=== PATIENT | female | born 1940 | race Caucasian/White ===

== ENCOUNTER 2023-09-11 07:05 | Day surgery (SDC) | payer MEDICARE, OTHER, SELFPAY ==
[2023-09-04 12:31] VITALS: BMI 22.4
[2023-09-11 08:48] VITALS: BMI 20.9
== END 2023-09-11 09:15 | disposition home or self-care (01) ==
LOC: CATH 07:05
PROVIDERS: ATTENDING PHYSICIAN Internal Medicine; FAMILY PHYSICIAN Family Medicine; OTHER PHYSICIAN Internal Medicine Cardiovascular Disease
DX: I08.3 Combined rheumatic disorders of mitral, aortic and tricuspid valves (principal); I10 Essential (primary) hypertension; I25.10 Atherosclerotic heart disease of native coronary artery without angina pectoris; R06.09 Other forms of dyspnea; E03.9 Hypothyroidism, unspecified
CPT/HCPCS: 93325; 93320; 93312

== ENCOUNTER 2024-11-23 11:34 | Emergency (ER) | payer MEDICARE, OTHER, SELFPAY ==
[2024-11-23] VITALS (8 sets, daily range): BP systolic 103–148; BP diastolic 68–118; BMI 21.3
[2024-11-23] MEDS: CARDIZEM 125 IV (12:25)
[2024-11-23] MEDS: CARDIZEM 10 MG IV (12:26)
[2024-11-23 12:38] LABS: % Basophils 0.4 % (0-2); % Eosinophils 0.6 % (0-6); % Immature Granulocytes 0.1 % (0-0.5); % Monocytes 11.2 % (1.7-9.3); % Neutrophils 69.7 % (42.2-75.2); Absolute Lymphocytes 1.2 10^3/uL (1.2-3.4); Absolute Monocytes 0.8 10^3/uL (0.1-0.6); Absolute Neutrophils 4.6 10^3/uL (1.4-6.5); Hematocrit 41.1 % (37.0-47.0); Hemoglobin 13.8 g/dL (12.0-16.0); Mean Corp Hgb Conc. 33.6 g/dL (33.0-37.0); Mean Corpuscular Hgb 28.6 pg (27.0-31.0); Mean Corpuscular Volume 85.3 fL (81.0-99.0); Mean Platelet Volume 9.8 fL (7.4-10.4); Nucleated Red Blood Cells % 0 %; Platelet Count 218 10^3/uL (130-400); Red Blood Cell Count 4.82 10^6/uL (4.20-5.40); Red Cell Dist. Width 14.1 % (11.5-14.5); White Blood Cell Count 6.7 10^3/uL (4.8-10.8)
[2024-11-23 12:46] LABS: INR 1.05
[2024-11-23 12:47] LABS: APTT 29.6 Sec (23.4-35.0)
[2024-11-23 12:56] LABS: ALT (SGPT) 12 U/L (0-35); AST (SGOT) 23 U/L (14-36); Albumin 4.1 g/dl (3.5-5.0); Alkaline Phosphatase 129 U/L (38-126); Blood Urea Nitrogen 17 mg/dl (7-17); Calcium 9.6 mg/dl (8.4-10.2); Carbon Dioxide 26 mmol/L (22-30); Chloride 100 mmol/L (98-107); Estimated Creatinine Clearance 44 ml/min; Glucose 83 mg/dl (70-99); Magnesium 1.9 mg/dl (1.6-2.3); Potassium 4.4 mmol/L (3.5-5.1); Sodium 134 mmol/L (135-145); Total Bilirubin 1.2 mg/dl (0.2-1.3); eGFR > 60.00
--- NOTE | 2024-11-23 13:08 | ED.GENMED ---
History of Present Illness
<Pradip Mcgowan, DO - Last Filed: 11/24/24 19:14>
General
Chief Complaint: Dizziness
Source: patient, records, spouse and physician
Exam Limitations: none
Time Seen by Provider: 11/23/24 11:53
Nursing documentation reviewed up to this point in time: agreed with
History of Present Illness
History of Present Illness:
84-year-old female referred to the ER from pulmonary where she presented for check up was found to be tachycardic with near syncope, has history of mitral valve disease, no history of A-fib, has history of lymphoma, she has no chest pain or
shortness of breath has been feeling fairly dizzy today, is not entirely clear when the A-fib started, no fever chills no nausea or vomiting,
Past History
<Pradip Mcgowan, DO - Last Filed: 11/24/24 19:14>
Past History
ED Past Medical History: Cancer, HTN and Valvular disease
Social History
Tobacco: Non-smoker
Alcohol: None
Drug: None
Personal:
Living: with family
Employment: Retired
Review of Systems
<Pradip Mcgowan, DO - Last Filed: 11/24/24 19:14>
Review of Systems
All Other Systems: Not applicable
Constitutional: Reports fatigue; Denies fever
Respiratory: Reports no symptoms
Cardiac: Reports no symptoms
Phy Exam
<Pradip Mcgowan, DO - Last Filed: 11/24/24 19:14>
Physical Exam
Physical Exam:
Physical Exam
General: no apparent distress, not acutely ill
Neck:No jaundice
Heart: Tachycardic
Lungs: no acute respiratory distress. clear bilaterally
Abdomen:. not tender.
Neuro: alert and oriented. no focal neurological deficits
Skin: no rash
Psychiatric: well kept. interactive and cooperative
Extremities: no edema. no calf tendernes
Course
<Pradip Mcgowan, DO - Last Filed: 11/24/24 19:14>
Orders/Labs/Results
Orders:
Orders
11/23/24 11:40
Electrocardiogram (*1) Urgent
Reason for Study: Vertigo / Dizzy
EKG- Treatment ONCE
11/23/24 12:13
Cardiac Monitoring- Treatment ONCE
IV Insert/Care/Rem.- Treatment PRN
Diltiazem HCl [Cardizem] 10 mg IV NOW STA
CR Chest Portable - 1 View Urgent
Comment:
Reason For Exam: hr fast
Reason Study Needs to be Portable: Patient Unstable
11/23/24 12:15
Diltiazem 125 mg/125 ml Nss [Cardizem] 125 mg in 125 ml IV PER PROTOCOL
Initial dose in mg/hr, then titrate:: 5
Titrate to keep:: Heart rate 80-100 bpm
Titrate by mg/hr:: 5 mg/hr
Frequency of titrations (minutes):: 15
Maximum dose in mg/hr:: 15
11/23/24 12:23
Complete Blood Count/With Diff Urgent
Comprehensive Metabolic Panel Urgent
Magnesium Urgent
PTT Urgent
Prothrombin Time Urgent
TSH Urgent
11/23/24 13:16
EKG- Treatment ONCE
Abnormal Lab Results
11/23/24
12:23
Absolute Monos (auto) 0.8 H 10^3/uL
(0.1-0.6)
Lymphocytes % 18.0 L %
(20.5-51.1)
Monocytes % 11.2 H %
(1.7-9.3)
Sodium 134 L mmol/L
(135-145)
Alkaline Phosphatase 129 H U/L
(38126)
11/23/24 12:23
11/23/24 12:23
Vital Signs
Initial and Last Documented VS:
Initial Vital Signs
Temp Pulse Resp BP Pulse Ox
97.3 F 86 17 148/88 98
11/23/24 11:36 11/23/24 11:36 11/23/24 11:36 11/23/24 11:36 11/23/24 11:36
Last Documented Vital Signs
Temp Pulse Resp BP Pulse Ox
97.3 F 73 25 130/82 96
11/23/24 11:36 11/23/24 15:00 11/23/24 15:00 11/23/24 15:00 11/23/24 15:00
<Abrahan Cobb, DO - Last Filed: 11/23/24 15:03>
Orders/Labs/Results
Orders:
Orders
11/23/24 11:40
Electrocardiogram (*1) Urgent
Reason for Study: Vertigo / Dizzy
EKG- Treatment ONCE
11/23/24 12:13
Cardiac Monitoring- Treatment ONCE
IV Insert/Care/Rem.- Treatment PRN
Diltiazem HCl [Cardizem] 10 mg IV NOW STA
CR Chest Portable - 1 View Urgent
Comment:
Reason For Exam: hr fast
Reason Study Needs to be Portable: Patient Unstable
11/23/24 12:15
Diltiazem 125 mg/125 ml Nss [Cardizem] 125 mg in 125 ml IV PER PROTOCOL
Initial dose in mg/hr, then titrate:: 5
Titrate to keep:: Heart rate 80-100 bpm
Titrate by mg/hr:: 5 mg/hr
Frequency of titrations (minutes):: 15
Maximum dose in mg/hr:: 15
11/23/24 12:23
Complete Blood Count/With Diff Urgent
Comprehensive Metabolic Panel Urgent
Magnesium Urgent
PTT Urgent
Prothrombin Time Urgent
TSH Urgent
11/23/24 13:16
EKG- Treatment ONCE
Abnormal Lab Results
11/23/24
12:23
Absolute Monos (auto) 0.8 H 10^3/uL
(0.1-0.6)
Lymphocytes % 18.0 L %
(20.5-51.1)
Monocytes % 11.2 H %
(1.7-9.3)
Sodium 134 L mmol/L
(135-145)
Alkaline Phosphatase 129 H U/L
(38-126)
11/23/24 12:23
11/23/24 12:23
Vital Signs
Initial and Last Documented VS:
Initial Vital Signs
Temp Pulse Resp BP Pulse Ox
97.3 F 86 17 148/88 98
11/23/24 11:36 11/23/24 11:36 11/23/24 11:36 11/23/24 11:36 11/23/24 11:36
Last Documented Vital Signs
Temp Pulse Resp BP Pulse Ox
97.3 F 73 25 130/82 96
11/23/24 11:36 11/23/24 15:00 11/23/24 15:00 11/23/24 15:00 11/23/24 15:00
<Pradip Mcgowan DO - Last Filed: 11/24/24 19:14>
MDM/Problems Addressed
Differential Diagnosis Includes:
Atrial tach atrial fibs tacky bradycardia electrolyte abnormality
MDM/Problems Addressed:
Tachycardia near syncope
<Pradip Mcgowan DO - Last Filed: 11/24/24 19:14>
*Critical Care Note
Total Time (30-74mins, 75-104mins- exclusive of procedures): Not Applicable
<Pradip Mcgowan DO - Last Filed: 11/24/24 19:14>
Update Note
Update Note:
Update on the Cardizem drip looks like she converted to sinus rhythm strips reviewed looks like they were A-fib versus atrial tach will hold on admission now await for cardiology evaluation
<Abrahan Cobb, DO - Last Filed: 11/23/24 15:03>
Update Note
Update Note:
Update on the Cardizem drip looks like she converted to sinus rhythm strips reviewed looks like they were A-fib versus atrial tach will hold on admission now await for cardiology evaluation
3 PM care of patient was transitioned earlier pending cardiology evaluation. After my discussion with cardiology, they do not appreciate A-fib. They suggested prescribing diltiazem and patient will picking machine operator a Holter monitor after discharge on her
way home
ED Attending Note
<Pradip Mcgowan, DO - Last Filed: 11/24/24 19:14>
-
Portions of this chart may have been created with voice recognition software.� Occasional wrong word or��sound alike� substitutions may have occurred due to the inherent limitations of voice recognition software.
Discharge Plan
Departure
Patient Disposition: Home (Routine Discharge)
Date of Disposition: 11/23/24
Time of Disposition: 15:00
Patient with high blood pressure during this ER visit?: Yes
Discharge Problem:
Heart palpitations
Instructions: Palpitations ED, BLOOD PRESSURE
Prescriptions:
New
diltiazem HCl 120 mg capsule,extended release 24hr
120 mg PO DAILY Qty: 30 0RF
No Action
levothyroxine 50 MCG tablet
50 mcg PO DAILY
carvedilol 12.5 MG tablet
25 mg PO BID
hydrochlorothiazide 12.5 mg Tablet
12.5 mg PO DAILY PRN (Reason: Retention)
Referrals:
Bello Valentin MD [Family Provider] -
Activity Restrictions/Additional Instructions:
Please picking machine operator the Holter monitor at the cardiology office on your way home. Please return for worsening symptoms. Follow-up with head greenskeeper as suggested.
Interventions
Interventions:
*Risk Screen - Suicide Last Done: 11/23/24 12:31
*General Assessment Last Done: 11/23/24 12:29
*Neglect/Abuse Screening Last Done: 11/23/24 12:31
*ED- Fall Risk Assessment Last Done: 11/23/24 12:29
*ED COVID-19 Vaccine History Last Done: 11/23/24 12:29
*Nursing Disposition Last Done: 11/23/24 15:11
ED- Neurological Assessment Last Done: 11/23/24 13:22
ED- Cardiac Assessment Last Done: 11/23/24 13:23
Discharge Date and Time
Discharge Date/Time: 11/23/24 15:12
Print Language: [place]
[2024-11-23 13:39] LABS: TSH 3.53 uIU/ml (0.47-4.68)
--- NOTE | 2024-11-23 14:15 | CON.CAR ---
Addendum entered and electronically signed by Remi Hancock MD 11/23/24 15:31:
I saw and examined the patient.
The SEO INTERN's note was reviewed and I agree with the note.
Comment: 84yo F well known to me in the outpatient setting with a history of mitral regurgitation, labile hypertension, CVA, Sjogren's syndrome, sarcoidosis and polymyositis who presented with dizziness. She woke up this morning and felt very
lightheaded as though she might pass out. She knew she had an appoint with Dr. Davison so went there for evaluation. He recommended evaluation in the ED when needed elevated heart rate was noted. Upon arrival to the ED, she was noted to have
tachyarrhythmia and started on diltiazem drip. She is feeling better since then. Heart rate is better controlled. She does report at home she is taking less of her Coreg because it seems to drop her blood pressure precipitously causing dizziness.
Otherwise, she has fatigue but no increased dyspnea on exertion. She has a regular rate and rhythm with a normal S1-S2 2 out of 6 systolic murmur heard at the apex, lungs are clear to auscultation bilaterally extremities are warm well-perfused
without clubbing cyanosis and trace edema in the lower extremities. Extensive review of her telemetry shows sinus rhythm with episodes of possible MAT versus A. tach. No efforts at sowed's of A-fib seen. Currently in sinus rhythm. EKG tracing
today shows sinus rhythm with marked sinus arrhythmia and LVH. Chest x-ray without acute cardiopulmonary changes. Currently she is feeling improved without any symptoms. She would like to go home. This seems reasonable as her dizziness seems to
be linked to a tachyarrhythmia that is now under control with some IV diltiazem. Will transition this to a long-acting diltiazem dose of 120 mg daily. She will continue with her remaining medications. I will arrange for her to stop at our office
on the way home to pepper picker a 7-day rhythm*monitor. I would hate to miss atrial fibrillation if present. Additionally, we will update an echocardiogram as an outpatient and arrange for short term follow-up. She is agreeable to this plan.
Original Note:
Consultation
Consultation Request
Date/Time Consultation Requested: 11/23/2024 13:45
Date/Time Consultation Performed: 11/23/2024 13:55
Requesting Provider: Dr. Mcgowan
Performing Provider: MADDIE Morales for Dr. Hancock
Reason for Consultation: Tachycardia
Medical History
-
Chief Complaint: Dizziness
History of Present Illness:
Aleshia King is an 84-year-old female (known to Dr. 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
Sjogren's syndrome diagnosed 40 years ago, polymyositis , sarcoidosis ([place]), & arachnoiditis who presents to the emergency room with dizziness. About 2 hours after she woke up she felt very dizzy. She endorses associated burning on her
posterior neck. She had a scheduled appointment with pulmonary. She was found to have an elevated heart rate and was referred to the emergency department. It appears to be MAT on telemetry. She is currently in sinus rhythm on diltiazem at 5
mg/hr. Her dizziness has resolved.
Past Medical History
Past Medical History: CAD, CHF, CVA, HTN, Valvular Disease (Mitral regurgitation) and Other (Sarcoid)
Social History
Tobacco: Non-Smoker
Alcohol: None
Drug: None
Personal:
Living: With Family
Employment: Retired
Family History
Family History: Reviewed & Not Pertinent
Allergies / Home Medications
Allergy/AdvReac Type Severity Reaction Status Date / Time
adhesive tape Allergy skin Verified 11/23/24 11:38
irriation
Penicillins Allergy Rash, Verified 11/23/24 11:38
SWELING
spironolactone Allergy rash of Verified 11/23/24 11:38
upper
extremties,
feet
Sulfa (Sulfonamide Allergy Rash, Verified 11/23/24 11:38
Antibiotics) SWELLING
tree and shrub pollen Allergy Cold Verified 11/23/24 11:38
Symptoms
�Medication �Instructions �Recorded �Confirmed �Type
levothyroxine 50 mcg tablet 50 mcg PO DAILY 10/05/14 09/11/23 History
carvedilol 12.5 mg tablet 25 mg PO BID 12/12/21 09/11/23 History
hydrochlorothiazide 12.5 mg tablet 12.5 mg PO DAILY PRN Retention 09/11/23 09/11/23 History
Review of Systems
-
History Source: Patient
Constitutional: No Symptoms
EENT: No Symptoms
Respiratory: No Symptoms
Cardiac: No Symptoms
Abdomen/GI: No Symptoms
: No Symptoms
Musculoskeletal: No Symptoms
Skin: No Symptoms
Neurological: No Symptoms
Endocrine: No Symptoms
Hematologic/Lymphatic: No Symptoms
Physical Exam
Vital Signs
Temp Pulse Resp BP Pulse Ox
97.3 F 76 17 147/118 95
11/23/24 11:36 11/23/24 14:00 11/23/24 12:01 11/23/24 12:01 11/23/24 12:01
Lab Results
11/23/24 12:23
11/23/24 12:23
Physical Exam
General: Well Developed, Well Nourished, No Apparent Distress and Comfortable
HEENT: Normocephalic, Anicteric and Moist Mucous Membranes
Respiratory: Clear and Non Labored Respirations
Cardiac: S1/S2 and Regular Rhythm
Breast: Deferred by me
GI: Soft, Non Tender, Non Distended and Normal Bowel Sounds
Rectal: Deferred by Provider
Genito-urinary: No Costovertebral Tender
Musculoskeletal: No Clubbing, No Cyanosis and No Edema
Skin: Warm and Dry
Neuro: AO x 3
Hematologic/Lymphatic: No Lymphadenopathy
Psych: Calm
Impression / Plan
-
MAT
- In sinus rhythm on diltiazem 5mg/hour, stop and transition to diltiazem 120 mg daily
- She only took half of her carvedilol this morning
- Outpatient monitoring to be arranged
Mitral regurgitation
- MVP at P2 with moderate MR on BRI 08/2023
- Outpatient echocardiogram to be arranged
Cardiomyopathy, nonischemic (EF 45 to 50%), recovered
- Cardiac MRI without acute findings
- SGLT2: Did not tolerate
- MRA: Rash with spironolactone
Labile hypertension
- Hydralazine caused myalgia, clonidine caused fatigue, ACEI caused hair loss, amlodipine caused lower extremity swelling, valsartan caused urinary retention, doxazosin caused urinary incontinence
- Continue carvedilol and HCTZ
CVA, 2006, in the setting of accelerated hypertension
Sarcoid
Large cell lymphoma, chemotherapy without XRT
Sjogren syndrome
Polymyositis
Data Reviewed
-
EKG: Report Reviewed by me
Medical Tests (Nuc Med, Echo etc): Report Reviewed by me
Labs: Labs Reviewed by me
Old Records: Reviewed
== END 2024-11-23 15:12 | disposition home or self-care (01) ==
LOC: EMR 11:34
PROVIDERS: EMERGENCY PHYSICIAN Emergency Medicine; FAMILY PHYSICIAN Family Medicine; OTHER PHYSICIAN Internal Medicine Cardiovascular Disease
DX: R00.2 Palpitations (principal); I11.0 Hypertensive heart disease with heart failure; I50.9 Heart failure, unspecified
CPT/HCPCS: 99285; 96374; 71045; 80053; 83735; 84443; 85025; 85610; 85730; 93005

== ENCOUNTER → 2024-12-02 11:19 | Outpatient (REF) | payer MEDICARE, OTHER, SELFPAY | LOC: HWRCS 11:19 | PROVIDERS: ATTENDING PHYSICIAN Internal Medicine Cardiovascular Disease; FAMILY PHYSICIAN Family Medicine | DX: I42.9 Cardiomyopathy, unspecified (principal); I34.0 Nonrheumatic mitral (valve) insufficiency; I10 Essential (primary) hypertension | CPT/HCPCS: 93306 ==

== ENCOUNTER 2024-12-06 14:50 | Emergency (ER) | payer MEDICARE, OTHER, SELFPAY ==
[2024-12-06 15:07] VITALS: BP 176/82
[2024-12-06 15:26] LABS: % Basophils 0.4 % (0-2); % Eosinophils 0.6 % (0-6); % Immature Granulocytes 0.2 % (0-0.5); % Lymphocytes 20.2 % (20.5-51.1); % Monocytes 7.6 % (1.7-9.3); Absolute Lymphocytes 1.1 10^3/uL (1.2-3.4); Absolute Monocytes 0.4 10^3/uL (0.1-0.6); Absolute Neutrophils 3.7 10^3/uL (1.4-6.5); Hematocrit 43.8 % (37.0-47.0); Hemoglobin 14.6 g/dL (12.0-16.0); Mean Corp Hgb Conc. 33.3 g/dL (33.0-37.0); Mean Corpuscular Volume 87.1 fL (81.0-99.0); Mean Platelet Volume 9.5 fL (7.4-10.4); Nucleated Red Blood Cells % 0 %; Platelet Count 260 10^3/uL (130-400); Red Blood Cell Count 5.03 10^6/uL (4.20-5.40); Red Cell Dist. Width 14.6 % (11.5-14.5); White Blood Cell Count 5.2 10^3/uL (4.8-10.8)
[2024-12-06 15:31] LABS: Erythrocyte Sed Rate 17 mm/hour (0-20)
[2024-12-06 15:39] LABS: ALT (SGPT) 18 U/L (0-35); AST (SGOT) 31 U/L (14-36); Albumin 4.5 g/dl (3.5-5.0); Alkaline Phosphatase 109 U/L (38-126); Blood Urea Nitrogen 16 mg/dl (7-17); Calcium 10.2 mg/dl (8.4-10.2); Carbon Dioxide 31 mmol/L (22-30); Chloride 95 mmol/L (98-107); Glucose 126 mg/dl (70-99); Potassium 4.4 mmol/L (3.5-5.1); Sodium 136 mmol/L (135-145); Total Bilirubin 0.8 mg/dl (0.2-1.3); Total Protein 7.9 g/dl (6.3-8.2); eGFR > 60.00
== END 2024-12-06 20:00 | disposition left against medical advice (07) ==
LOC: EMR 14:50
PROVIDERS: Emergency Medicine; EMERGENCY PHYSICIAN Emergency Medicine
DX: M54.50 Low back pain, unspecified (principal); Z53.21 Procedure and treatment not carried out due to patient leaving prior to being seen by health care provider
CPT/HCPCS: 80053; 85025; 85652; 86140

== ENCOUNTER → 2024-12-08 18:40 | Outpatient (REF) | payer MEDICARE, OTHER, SELFPAY | LOC: MRI 3T 18:40 | PROVIDERS: ATTENDING PHYSICIAN Internal Medicine Hematology & Oncology; FAMILY PHYSICIAN Family Medicine | DX: M51.17 Intervertebral disc disorders with radiculopathy, lumbosacral region (principal); C83.38 Diffuse large B-cell lymphoma, lymph nodes of multiple sites; M81.0 Age-related osteoporosis without current pathological fracture | CPT/HCPCS: 72158; A9575 ==

== ENCOUNTER 2024-12-17 12:13 | Inpatient (IN) | payer MEDICARE, OTHER, SELFPAY ==
[2024-12-17] VITALS (22 sets, daily range): BP systolic 110–166; BP diastolic 69–142; BMI 20.8; BMI 19.3
--- NOTE | 2024-12-17 07:08 | ED.GENMED ---
History of Present Illness
General
Chief Complaint: Breathing Problem
Time Seen by Provider: 12/17/24 06:48
History of Present Illness
History of Present Illness:
84-year-old female presents to the emergency department for evaluation of shortness of breath beginning last night. She was recently wearing an outpatient groundwater monitoring technician that diagnosed her with atrial fibrillation, was contacted by her
booster station operator yesterday and was started on new medications. She was started on 200 mg of amiodarone, switched from carvedilol to 50 mg of metoprolol, and started on 2.5 mg of Eliquis. States that she felt significantly worse after beginning of
these medications. Currently reports orthopnea and dyspnea on exertion. No leg swelling or chest pain. Feels generally fatigued. No fever
Past History
Past History
ED Past Medical History: Cancer, HTN and Valvular disease
Social History
Tobacco: Non-smoker
Alcohol: None
Drug: None
Personal:
Living: with family
Employment: Retired
Review of Systems
Review of Systems
Allergies reviewed?: Yes
All Other Systems: ROS reviewed and negative except as documented in HPI and ROS
Phy Exam
Physical Exam
Physical Exam:
GEN: Well appearing, NAD, WDWN
HEENT: Oral mucosa moist, no scleral icterus
Cardiac: Irreg irregular rhythm, controlled rate
Lung: No respiratory distress, no tachypnea, lungs clear to auscultation bilaterally
MSK: No gross deformity or injuries, no lower extremity edema
Skin: Good color, no pallor or jaundice, no rashes
Neuro: AO x3, moves all extremities freely
Psych: Calm, cooperative
Scores
Heart Failure Risk
Heart Failure Risk Score: Yes
History of Stroke or TIA: No
History of intubation for respiratory distress: No
Heart rate on ED arrival >/= 110: Yes
SaO2 <90% on arrival on room air: No
HR >/=110 during 3min walk test (or too ill to perform test): Yes
ECG has acute ischemic changes: No
Urea >/=12mmol/L (BUN 33.6mg/dL): No
Serum CO2>/=35mmol/L: No
Troponin I or T elevated to [place] Level (0.4mg/dL): No
NT-proBNP >/=5,000ng/L (5,000pg/ml): Yes
HF Risk Score: 3
Admission Status: HIGH RISK 15.9% Consider SNF treatment or admission to hospital
Course
Orders/Labs/Results
Orders:
Orders
12/17/24 06:23
EKG [Electrocardiogram (*1)] Urgent
Reason for Study: Shortness of Breath
12/17/24 06:24
EKG- Treatment ONCE
12/17/24 06:58
CR Chest - 2 Views Urgent
Comment:
Reason For Exam: SOB
12/17/24 07:14
Complete Blood Count/No Diff Urgent
Comprehensive Metabolic Panel Urgent
NT-proBNP Urgent
TSH Reflex To Free T4 Urgent
Troponin I Urgent
12/17/24 07:24
Trimethobenzamide [Tigan] 200 mg IM NOW STA
12/17/24 09:03
Troponin I Urgent
12/17/24 09:33
Furosemide [Lasix] 20 mg IV NOW STA
12/17/24 10:00
CARDIOLOGY CONSULT Routine
Consulting Provider: Remi Hancock
Was physician already notified: Yes
Cholesterol Lowering
At Your Request: Full Participation
Cholesterol Lowering: Sodium, 2 Gram
12/17/24 11:17
Add On- LAB Routine
Tests Added?: TSH reflex FT4
12/17/24 11:37
Admit/Transfer Patient As Directed
Co-Sign Provider:
Level of Care: Inpatient admission
Assign to:: IVU
Physician / Group: Laura/hospitalist
Diagnosis: A fib, CHF
Reason for Hospitalization: A fib, CHF
Expected length of stay greater than two midnights?: Yes
ELOS- Estimated Length of Stay in days: 4
I certify the patient meets the requirements for IP care: Yes
PRN Pain Medication Management As Directed
May give lesser potent ordered pain med per pt: Yes
preference::
Protocol:: Medication orders for pain may be administered in a
manner that supports deferring to patient preference
when the pt is:
- Requesting an ordered lesser potent pain medication.
Least to most potent pain medications are defined
as: acetaminophen < NSAID < tramadol < opioids
(morphine, oxycodone, hydromorphone).
- Requesting a lesser dose of the same medication IF
ORDERED.
- Requesting a less intrusive route of administration
if both routes are prescribed by the provider (PO <
IV).
12/17/24 11:38
Code Status As Directed
Resuscitation Status: Full Code
12/17/24 13:27
Polyethylene Glycol Powder [Miralax] 17 grams PO DAILYPRN PRN
Sennosides [Senokot] 8.6 mg PO BIDPRN PRN
acetaminophen-codeine 1 tablet PO QIDPRN PRN
12/17/24 13:27
HF DIETARY CONSULT Routine
HF EDUCATOR CONSULT Routine
Comment:
Activity As Directed
Activity Level: As Tolerated
Intake/ Output As Directed
Frequency: Per unit guidelines
Patient Education As Directed
Type: CHF folder
Comment: give on admission. Document in Interdisciplinary Education record
Sleep Apnea Assessment by RN As Directed
Comment:
Physician Instructions:
Vital Signs As Directed
Frequency: Other
Additional Instructions:: Q12 or per unit guidelines if more frequent.
Weight As Directed
Frequency: Daily
Type of Scale: Standing Scale
Comment: Daily morning weight. If unable to stand, use balanced bed scale.
Weight As Directed
Frequency: Once
Type of Scale: Standing Scale
Comment: Upon Admission. If unable to stand, use balanced bed scale.
Pulse Ox/cont/shift [RESP] Routine
Quantity: 1
Special Instructions: Daily pulse oximetry at rest. If greater than 92% at rest also obtain pulse oximetry
while ambulating as tolerated.
Ot Eval And Treat Routine
Pt Eval And Treat Routine
Activity Level: As Tolerated
12/17/24 16:00
Furosemide [Lasix] 20 mg IV BID AT 0800,1600
12/17/24 20:00
Apixaban [Eliquis] 2.5 mg PO BID
12/18/24 06:00
Basic Metabolic Panel IN AM
Complete Blood Count/No Diff IN AM
Magnesium IN AM
12/18/24 08:00
Levothyroxine [Synthroid] 50 mcg PO DAILY
Metoprolol Xl [Toprol Xl] 50 mg PO DAILY
12/19/24 06:00
Basic Metabolic Panel IN AM
12/20/24 06:00
Basic Metabolic Panel IN AM
Abnormal Lab Results
12/17/24
07:14
RDW 15.2 H %
(11.5-14.5)
Glucose 116 H mg/dl
(70-99)
Alkaline Phosphatase 139 H U/L
(38-126)
12/17/24 07:14
12/17/24 07:14
Vital Signs
Initial and Last Documented VS:
Initial Vital Signs
Temp Pulse Resp BP Pulse Ox
98.4 F 80 24 160/110 97
12/17/24 06:34 12/17/24 06:34 12/17/24 06:34 12/17/24 06:34 12/17/24 06:34
Last Documented Vital Signs
Temp Pulse Resp BP Pulse Ox
98.4 F 104 14 137/77 96
12/17/24 06:34 12/17/24 13:00 12/17/24 13:00 12/17/24 12:00 12/17/24 11:15
MDM/Problems Addressed
MDM/Problems Addressed:
Patient appears to be in mild acute CHF evidenced by pulmonary edema and dyspnea on exertion. This is likely due to her uncontrolled rapid A-fib. Will admit for further management
*Critical Care Note
Total Time (30-74mins, 75-104mins- exclusive of procedures): Not Applicable
ED Attending Note
-
Portions of this chart may have been created with voice recognition software.� Occasional wrong word or��sound alike� substitutions may have occurred due to the inherent limitations of voice recognition software.
Discharge Plan
Departure
Patient Disposition: Admit
Date of Disposition: 12/17/24
Time of Disposition: 09:34
Admit to: Telemetry
Presentation/result/management discussed w/ accepting MD/DO: Hospitalist
Discharge Problem:
New onset of congestive heart failure
Interventions
Interventions:
*Risk Screen - Suicide Last Done: 12/17/24 06:34
*General Assessment Last Done: 12/17/24 07:16
*Neglect/Abuse Screening Last Done: 12/17/24 06:34
*ED- Fall Risk Assessment Last Done: 12/17/24 07:16
*ED COVID-19 Vaccine History Last Done: 12/17/24 07:16
ED- Cardiac Assessment Last Done: 12/17/24 08:26
ED- Pulmonary Assessment Last Done: 12/17/24 08:26
[2024-12-17] MEDS: TIGAN 200 MG IM ×2 (07:28→21:28)
[2024-12-17 07:29] LABS: Hematocrit 38.3 % (37.0-47.0); Mean Corp Hgb Conc. 33.9 g/dL (33.0-37.0); Mean Corpuscular Hgb 29.5 pg (27.0-31.0); Mean Corpuscular Volume 86.8 fL (81.0-99.0); Mean Platelet Volume 9.8 fL (7.4-10.4); Platelet Count 211 10^3/uL (130-400); Red Blood Cell Count 4.41 10^6/uL (4.20-5.40); Red Cell Dist. Width 15.2 % (11.5-14.5)
[2024-12-17 07:46] LABS: ALT (SGPT) 16 U/L (0-35); AST (SGOT) 28 U/L (14-36); Albumin 4.7 g/dl (3.5-5.0); Alkaline Phosphatase 139 U/L (38-126); Blood Urea Nitrogen 12 mg/dl (7-17); Calcium 9.4 mg/dl (8.4-10.2); Carbon Dioxide 27 mmol/L (22-30); Chloride 99 mmol/L (98-107); Estimated Creatinine Clearance 44 ml/min; Glucose 116 mg/dl (70-99); Potassium 4.1 mmol/L (3.5-5.1); Sodium 137 mmol/L (135-145); Total Bilirubin 1.1 mg/dl (0.2-1.3); Total Protein 7.5 g/dl (6.3-8.2); eGFR > 60.00
[2024-12-17 07:55] LABS: NT-proBNP 6700 pg/ml
[2024-12-17 09:37] LABS: Troponin I 0.015 ng/ml
[2024-12-17] MEDS: LASIX 20 MG IV ×2 (09:43→15:49)
[2024-12-17 09:47] LABS: Troponin I 0.019 ng/ml
--- NOTE | 2024-12-17 10:00 | HPS.HSE ---
Family Physician
-
Family Physician: Bello Valentin
Chief Complaint
-
SOB
History of Present Illness
HPI: 84-year-old female with PMH of recent diagnosis of CHF and A fib; p/w shortness of breath that started the night CARDIOLOGY FELLOW. She also c/o orthopnea, HAMM and mild leg swelling.
She denies to cough, fever/chills etc.
She recently started wearing an outpatient forensic technician to monitor her HR, and was noted to be in atrial fibrillation.
She was started with new medications by her nurse sitter the day CARDIOLOGY FELLOW: Amiodarone 200 mg BID, Metoprolol 50 mg daily (from coreg), and Eliquis 2.5 mg BID.
She states that she felt significantly worse after starting her new meds (?amiodarone).
Of note, she had a recent fall 11/26/2024 resulting in compression fracture of her lumbar spine.
Medical History
Past Medical History
Past Medical History: Reports Other
Additional Past Medical History:
CHF
A fib
Hypothyroidism
Labile hypertension
CVA in 2006
Sarcoidosis
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
Sjogren syndrome
Polymyositis
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
Past Surgical History: Reports None
Social History
Tobacco: Non-smoker
Personal:
Living: With Family
Family History
Family History: Not pertinent
Allergies / Home Medications
Allergies reflects when Allergies were last updated in [facility].
Home Medications with original date entered in [facility]
Allergy/Medication List:
Allergies
Allergy/AdvReac Type Severity Reaction Status Date / Time
adhesive tape Allergy skin Verified 12/17/24 06:34
irriation
Penicillins Allergy Rash, Verified 12/17/24 06:34
SWELING
spironolactone Allergy rash of Verified 12/17/24 06:34
upper
extremties,
feet
Sulfa (Sulfonamide Allergy Rash, Verified 12/17/24 06:34
Antibiotics) SWELLING
tree and shrub pollen Allergy Cold Verified 12/17/24 06:34
Symptoms
Home Medications
levothyroxine 50 mcg tablet 50 mcg PO DAILY 10/05/14
acetaminophen 300 mg-codeine 60 mg tablet 1 tab PO QIDPRN PRN severe pain 12/17/24
amiodarone 200 mg tablet 200 mg PO BID 12/17/24
apixaban 2.5 mg tablet (Eliquis) 2.5 mg PO BID 12/17/24
diltiazem HCl 120 mg capsule,24 hr,extended release 120 mg PO DAILY 12/17/24
metoprolol succinate 50 mg tablet,extended release 24 hr (Toprol XL) 50 mg PO DAILY 12/17/24
polyethylene glycol 3350 17 gram oral powder packet (Miralax) 17 g PO DAILYPRN PRN constipation 12/17/24
sennosides 8.6 mg tablet (senna) 8.6 mg PO BIDPRN PRN constipation 12/17/24
Review of Systems
-
Respiratory: Reports Trouble Breathing
Cardiac: Reports See HPI and Palpitations; Denies Chest Pain
Physical Exam
Vital Signs
Vital Signs
Temp Pulse Resp BP Pulse Ox
36.9 C 94 27 166/88 96
12/17/24 06:34 12/17/24 09:47 12/17/24 09:30 12/17/24 09:47 12/17/24 09:47
Physical Exam
General: Well Developed, Well Nourished, No Apparent Distress, Comfortable and Conversant
HEENT: NormoCephalic, Moist mucous membranes and Atraumatic
Respiratory: Clear and Non Labored Respirations; No Accessory Resp Muscle Use
Cardiac: S1/S2 and Irregular Rhythm; No Murmur or Rub
GI: Soft, Non Tender, Non Distended and Normal Bowel Sounds; No Organomegaly
Rectal: Deferred by Provider
Musculoskeletal: No Clubbing, No Cyanosis, Edema, Left Lower Extremity and Edema, Right Lower Extremity
Skin: No Rash
Neuro: Awake and Alert
Psych: Calm and Intact Judgment/Insight
Laboratory Results
-
12/17/24 07:14
12/17/24 07:14
Laboratory Results
Total Bilirubin 1.1 mg/dl (0.2-1.3) 12/17/24 07:14
AST 28 U/L (14-36) 12/17/24 07:14
ALT 16 U/L (0-35) 12/17/24 07:14
Alkaline Phosphatase 139 U/L (38-126) H 12/17/24 07:14
Troponin I 0.015 ng/ml 12/17/24 09:03
Data Reviewed
-
Diagnostic Radiology: Image Personally Visualized and interpreted and Report Reviewed by me
Lab Data: Labs Reviewed by me
Impression/Plan
-
HPI: 84-year-old female with PMH of recent diagnosis of CHF and A fib; p/w shortness of breath that started the night CARDIOLOGY FELLOW. She also c/o orthopnea, HAMM and mild leg swelling.
She denies to cough, fever/chills etc.
She recently started wearing an outpatient forensic technician to monitor her HR, and was noted to be in atrial fibrillation.
She was started with new medications by her nurse sitter the day CARDIOLOGY FELLOW: Amiodarone 200 mg BID, Metoprolol 50 mg daily (from coreg), and Eliquis 2.5 mg BID.
She states that she felt significantly worse after starting her new meds (?amiodarone).
Of note, she had a recent fall 11/26/2024 resulting in compression fracture of her lumbar spine.
A/P:
# Acute on chronic systolic CHF
BNP 6700
CXR: Severely increased interstitial markings with moderate ground-glass opacity throughout the right lung (less pronounced in the left lung) which appears new from 11/23/2024 and is likely ACUTE INTERSTITIAL and ALVEOLAR CARDIOGENIC PULMONARY
EDEMA.
Echo from 12/02/2024: Mildly reduced systolic function, EF 45-50%. Mild global hypokinesis. Moderate mitral regurgitation.
Cont IV lasix 40 mg BID, monitor daily weight , I/O etc.
Card CS
# Recently new diagnosis of A fib, suspect paroxysmal
Continue home Toprol with holding parameter
Holding CARDIOLOGY FELLOW Amiodarone and Cardizem
# Hypothyroidism
Check TSH reflex FT4
cont CARDIOLOGY FELLOW Synthroid
# Labile hypertension
Continue home Toprol with holding parameter
# CVA in 2006
# Sarcoidosis
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
# Sjogren syndrome
# Polymyositis
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
# Recent compression fracture of lumbar spine.
PT OT eval
DVT ppx: CARDIOLOGY FELLOW Eliquis
FC
--- NOTE | 2024-12-17 11:45 | CON.CAR ---
Addendum entered and electronically signed by Remi Hancock MD 12/17/24 17:01:
I saw and examined the patient.
The THERMAL MOLDER's note was reviewed and I agree with the note.
Comment: 84-year-old female, patient of Dr. Hancock, with progressive moderate mitral valve regurgitation, mild CM EF 45-50%, diffuse large cell lymphoma s/p chemo only, CVA in 2006(loss of vision), labile hypertension, Sjogren's syndrome
diagnosed 40 years ago, polymyositis , sarcoidosis (Gittlen), and arachnoiditis, and many medication intolerances that makes her management particularly difficult.
Intolerances: hydralazine(mylagia), Clonidine(Fatigue) ACEI (hairloss) Amlodipine(LE swelling) Valsartan (caused urinary retention) doxazosin (urinary incontinence), now spironolactone and sglt2i.�
-
She presents after recent diagnosis of paroxysmal atrial fibrillation and evaluation by Dr. Darden just 2 days ago. At that visit he stopped her Coreg, hydrochlorothiazide and diltiazem. He initiated amiodarone, metoprolol and Eliquis for her
atrial fibrillation with rapid ventricular response. Of note, her rate at that visit was atrial fibrillation rapid response with 120 bpm. He was also concerned that sarcoid may be an issue now given her NSVT seen on monitoring. She was note ready
to consider ICD per note review. Of note in the recent past she had a cardiac MRI without any evidence of infiltration.
Today she presents feeling 'awful' after taking the medication and she refuses to take amiodarone ever again. She only took one dose of all the medications. She also has sob.
On exam she has bibasilar rales, irreg irreg rate and rhythm,2/6 HSM at the apex, trace edema b/l
CXR with pulm edema pro-BNP 6700
OVerall, this is a very difficult scenario. She would like to have a chance a rhythm control. ECG precluded Tikosyn and sotalol, amiodarone is best choice. I explained that she likely didn't have a reaction to the drugs she only took once,
especially Amiodarone given pharmacokinetics. She still isn't interested.
For her AF, will titrate metoprolol to rate control. I am concerned her MR may be the root of the arrhythmia. Will arrange for BRI/DCCV for af and to evaluate her mitral clip candidacy.
I am not optimistic she will maintain sinus.
She will continue Eliquis.
HTN is labile and she had a normal secondary work up. Will try to get control with single agent since as of late her bp has been dropping acutely to med dosing.
NSVT: bb started, monitor on tele, can consider referal to tertiary center for PET to rule oul myocardial involvement.
Will follow
Original Note:
Consultation
Consultation Request
Date/Time Consultation Requested: 12/17/24 10a
Date/Time Consultation Performed: 12/17/24 11:30a
Requesting Provider: Dr. Sanchez
Performing Provider: MADDIE Calhoun for Dr. Hancock
Reason for Consultation: rapid Afib, CHF
Medical History
-
Chief Complaint: sob
History of Present Illness:
Mrs. King is an 84-year-old female, patient of Dr. Hancock, with progressive moderate mitral valve regurgitation, mild CM EF 45-50%, diffuse large cell lymphoma s/p chemo only, CVA in 2006(loss of vision), labile hypertension, Sjogren's
syndrome diagnosed 40 years ago, polymyositis , sarcoidosis (G[place]), and arachnoiditis, who presents to the ER with c/o increased SOB and nausea. She is admitted to the hospitalist service and we are consulted for acute HFmrEF. She was seen on
the office by Dr. Darden on 12/15/24 and he adjusted her medications for rapid Afib, Coreg, HCTZ and Diltiazem (after 10 days) stopped, and started on Toprol 50mg BID, Amiodarone 200mg BID and Eliquis 2.5mg BID. She thinks these medications have
caused her symptoms. CXR shows pulmonary edema. Tele/EKG shows rapid Afib as well.
Past Medical History
Past Medical History: Other (as above)
Social History
Tobacco: Non-Smoker
Alcohol: None
Personal:
Living: With Family
Family History
Family History: Reviewed & Not Pertinent
Allergies / Home Medications
Allergy/AdvReac Type Severity Reaction Status Date / Time
adhesive tape Allergy skin Verified 12/17/24 06:34
irriation
Penicillins Allergy Rash, Verified 12/17/24 06:34
SWELING
spironolactone Allergy rash of Verified 12/17/24 06:34
upper
extremties,
feet
Sulfa (Sulfonamide Allergy Rash, Verified 12/17/24 06:34
Antibiotics) SWELLING
tree and shrub pollen Allergy Cold Verified 12/17/24 06:34
Symptoms
�Medication �Instructions �Recorded �Confirmed �Type
levothyroxine 50 mcg tablet 50 mcg PO DAILY 10/05/14 12/17/24 History
acetaminophen 300 mg-codeine 60 mg 1 tab PO QIDPRN PRN severe pain 12/17/24 12/17/24 History
tablet
amiodarone 200 mg tablet 200 mg PO BID 12/17/24 12/17/24 History
apixaban 2.5 mg tablet (Eliquis) 2.5 mg PO BID 12/17/24 12/17/24 History
diltiazem HCl 120 mg capsule,24 120 mg PO DAILY 12/17/24 12/17/24 History
hr,extended release
metoprolol succinate 50 mg 50 mg PO DAILY 12/17/24 12/17/24 History
tablet,extended release 24 hr
(Toprol XL)
polyethylene glycol 3350 17 gram 17 g PO DAILYPRN PRN constipation 12/17/24 12/17/24 History
oral powder packet (Miralax)
sennosides 8.6 mg tablet (senna) 8.6 mg PO BIDPRN PRN constipation 12/17/24 12/17/24 History
Review of Systems
-
History Source: Patient
All other systems: Negative unless noted
Physical Exam
Vital Signs
Temp Pulse Resp BP Pulse Ox
98.4 F 101 23 149/105 94
12/17/24 06:34 12/17/24 11:00 12/17/24 11:00 12/17/24 10:00 12/17/24 10:45
Lab Results
12/17/24 07:14
12/17/24 07:14
Troponin I 0.015 ng/ml 12/17/24 09:03
Fwv-N-Fznuzfipwhb Pept 6700 pg/ml 12/17/24 07:14
Physical Exam
General: Well Developed and No Apparent Distress
HEENT: Normocephalic, Anicteric and Moist Mucous Membranes
Respiratory: Non Labored Respirations and Other (diminished b/l bases)
Cardiac: S1/S2 and Irregular Rhythm (tachycardia)
Breast: Deferred by me
GI: Soft, Non Tender, Non Distended and Normal Bowel Sounds
Rectal: Deferred by Provider
Genito-urinary: No Costovertebral Tender
Musculoskeletal: No Clubbing, No Cyanosis and No Edema
Skin: Warm and Dry
Neuro: AO x 3
Psych: Calm
Impression / Plan
-
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
- agree with IV diuresis.
- likely from progressive mitral regurgitation, will need BRI.
- echo 12/02/24.
- trend daily weights, I&Os.
Afib - new diagnosis as outpatient this week.
- rapid rates.
- recent med changes as above.
- now on Eliquis 2.5mg bid, continue.
- continue meds.
- consider BRI/DCCV after diuresis.
Cardiomyopathy - nonischemic, EF 45-50%.
- Cardiac MRI w/o acute findings.
- did not tolerate SGLT2 or MRA (rash with Aldactone).
Mitral regurgitation - moderate on TTE 12/02/24, CMR and BRI 08/2023.
- will reassess MR with BRI after diuresis.
HTN - labile.
- she has multiple drug intolerances: Hydralazine - myalgias, clonidine - fatigue, ACEI - hair loss, amlodipine - lower extremity swelling, valsartan - urinary retention, doxazosin - urinary incontinence.
Data Reviewed
-
EKG: Tracing Personally Visualized and interpreted (Afib with RVR 109 bpm)
Radiology: Report Reviewed by me (CXR: Severely increased interstitial markings with moderate ground-glass opacity throughout the right lung which appears new from 11/23/2024 and is likely acute interstitial/pulmonary edema right lower lobe
pneumonia is an alternative diagnostic possibility.)
Medical Tests (Nuc Med, Echo etc): Report Reviewed by me (echo 12/02/24: 45-50%, mild global HK, moderate MR, mild AR. )
Labs: Labs Reviewed by me
Old Records: Reviewed
[2024-12-17] MEDS: NSS (PRESERVATIVE FREE) 0.125 ML IV (14:21)
[2024-12-17] MEDS: ATIVAN 0.25 MG IV (14:21)
[2024-12-17] MEDS: CODEINE 60 MG PO (15:49)
[2024-12-17] MEDS: LOPRESSOR 2.5 MG IV (16:58)
[2024-12-17] MEDS: ELIQUIS 2.5 MG PO (19:56)
[2024-12-17] MEDS: TOPROL XL 50 MG PO (19:56)
--- NOTE | 2024-12-17 20:15 | PTCARENOTE ---
Pt admitted from ED aprox @ 1930, aaox3, walked with assist x1 from stretcher to bed, denies chest pain or SOB. Pt Afib on the monitor with HR up to 150's with ambulation, 110-120's at rest. O2 sat 96% RA, lungs diminished throughout. Call mckeon
within reach,educated on the risk of fall and encouraged to call for assistance.
[2024-12-17] MEDS: TYLENOL 325 MG PO (23:22)
[2024-12-18] VITALS (10 sets, daily range): BP systolic 111–150; BP diastolic 73–101; PULSE 80–90; O2SAT 94; BMI 19.3
[2024-12-18 04:54] LABS: Hematocrit 41.7 % (37.0-47.0); Hemoglobin 14.4 g/dL (12.0-16.0); Mean Corp Hgb Conc. 34.5 g/dL (33.0-37.0); Mean Corpuscular Hgb 29.2 pg (27.0-31.0); Mean Corpuscular Volume 84.6 fL (81.0-99.0); Platelet Count 238 10^3/uL (130-400); Red Blood Cell Count 4.93 10^6/uL (4.20-5.40); Red Cell Dist. Width 15.6 % (11.5-14.5); White Blood Cell Count 7.3 10^3/uL (4.8-10.8)
--- NOTE | 2024-12-18 05:13 | PTCARENOTE ---
Pt slept well through the night, no c/o chest pain. Remained Afib on the monitor with HR 80-90's. Used bedside commode with x1 assist, small urine output. Call mckeon within reach, POC ongoing.
[2024-12-18 05:22] LABS: Blood Urea Nitrogen 21 mg/dl (7-17); Calcium 9.4 mg/dl (8.4-10.2); Carbon Dioxide 27 mmol/L (22-30); Chloride 97 mmol/L (98-107); Estimated Creatinine Clearance 30 ml/min; Glucose 110 mg/dl (70-99); Magnesium 1.7 mg/dl (1.6-2.3); Potassium 3.9 mmol/L (3.5-5.1); Sodium 134 mmol/L (135-145); eGFR 54.87
--- NOTE | 2024-12-18 06:00 | PTCARENOTE ---
Mg 1.7 with this morning's labs, utilization review coordinator [employer] made aware, Bp stable, HR 80-90's. no new orders at this time.
[2024-12-18] MEDS: SYNTHROID 50 MCG PO (06:20)
--- NOTE | 2024-12-18 07:40 | W.PN.HOSP.TC ---
Today's Communication/Plan
-
Continue diuresis. Check Cardiology note daily
Assessment / Plan
Assessment / Plan
84-year-old woman with PMH of recent diagnosis of CHF and A fib; p/w shortness of breath that started the night CO FOUNDER. She also c/o orthopnea, HAMM and mild leg swelling.
She denies to cough, fever/chills etc.
A/P:
1. Acute on chronic systolic CHF
BNP 6700
CXR: Severely increased interstitial markings with moderate ground-glass opacity throughout the right lung (less pronounced in the left lung)
which appears new from 11/23/2024 and is likely ACUTE INTERSTITIAL and ALVEOLAR CARDIOGENIC PULMONARY EDEMA.
Echo from 12/02/2024: Mildly reduced systolic function, EF 45-50%. Mild global hypokinesis. Moderate mitral regurgitation.
Cont IV lasix 40 mg BID, monitor daily weight , I/O etc.
Card CS ongoing - please see daily CS note
2. Recently new diagnosis of A fib, suspect paroxysmal
Continues today
Continue home Toprol with holding parameter
Holding CO FOUNDER Amiodarone and Cardizem
3. Hypothyroidism - chronic
Check TSH reflex FT4
cont CO FOUNDER Synthroid
5. Labile hypertension - Chronic
Continue home Toprol with holding parameter
6. Other notable dianosis:
CVA in 2006
Sarcoidosis
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
Sjogren syndrome
Polymyositis
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
Recent compression fracture of lumbar spine.
7. PT OT eval requested
DVT ppx: CO FOUNDER Eliquis
Full code
Anticipated Discharge: > 48 hours
Subjective/Interval History
-
Date of Service: December 18, 2024
Slept well. Feels better.
Objective Data
-
Labs:
Laboratory Results
12/18/24
04:37
WBC 7.3
Hgb 14.4
Hct 41.7
Plt Count 238
Sodium 134 L
Potassium 3.9
Chloride 97 L
Carbon Dioxide 27
BUN 21 H
Creatinine 1.0
Glucose 110 H
Calcium 9.4
Vital Signs:
Vital Signs
Temp Pulse Resp BP Pulse Ox
97.3 F 141 20 137/99 99
12/18/24 07:14 12/18/24 00:15 12/18/24 07:14 12/17/24 22:36 12/18/24 07:14
I&O
12/17/24 12/18/24 12/19/24
06:59 06:59 06:59
Intake Total 240 / 240
Output Total 675 / 675
Balance -435 / -435
Review of Systems
-
History Source: Patient
All other systems: Reviewed and negative
Physical Exam
-
General: Well Developed, Well Nourished, No Apparent Distress, Comfortable and Conversant
HEENT: Normocephalic, Atraumatic, Moist Mucous Membranes, Nose Appears Normal and Ears Appear Normal
Respiratory: Clear to Auscultation
Cardiac: S1/S2 and Irregular Rhythm
GI: Soft, Nontender and Nondistended
Musculoskeletal: No Clubbing and No Cyanosis
Skin: Warm and Dry; Negative Rash
Neuro: Awake, Alert, Oriented and AO x 3
Psych: Calm
Data Reviewed
-
Labs: Labs Reviewed by me
[2024-12-18] MEDS: TOPROL XL 50 MG PO ×2 (09:20→20:01)
[2024-12-18] MEDS: ELIQUIS 2.5 MG PO ×2 (09:20→20:00)
[2024-12-18] MEDS: LASIX 20 MG IV ×2 (09:20→15:40)
--- NOTE | 2024-12-18 09:29 | PTOTSP ---
pt currently requires supervision to no assistance to complete simple ADLs, functional transfers, ambulation. pt resistant to using walker, despite recommendation due to recent fall and unsteady ambulation. no acute OT needs identified at this time,
will sign off.
--- NOTE | 2024-12-18 13:32 | W.PN.CD ---
Today's Communication / Plan
-
IV diuresis
BRI Friday to look at MV and r/o LA/CYNDY thrombus/DCCV
Impression / Plan
-
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
- agree with IV diuresis.
- likely from progressive mitral regurgitation, will need BRI.
- echo 12/02/24.
- trend daily weights, I&Os.
Afib - new diagnosis as outpatient this week.
- rapid rates.
- recent med changes as above.
- now on Eliquis 2.5mg bid, continue.
- continue meds. Agreeable to try Amio 200 daily, understands AFib more likely to recur with incomplete Amio loading, she is will to need second cardioversion
- consider BRI/DCCV after diuresis.
Cardiomyopathy - nonischemic, EF 45-50%.
- Cardiac MRI w/o acute findings.
- did not tolerate SGLT2 or MRA (rash with Aldactone).
Mitral regurgitation - moderate on TTE 12/02/24, CMR and BRI 08/2023.
- will reassess MR with BRI after diuresis.
HTN - labile.
- she has multiple drug intolerances: Hydralazine - myalgias, clonidine - fatigue, ACEI - hair loss, amlodipine - lower extremity swelling, valsartan - urinary retention, doxazosin - urinary incontinence.
Subjective: A bit better today
Physical Exam
Vital Signs/Labs
Vital Signs
Temp Pulse Resp BP Pulse Ox
97.5 F 80 20 115/73 95
12/18/24 11:22 12/18/24 11:30 12/18/24 11:22 12/18/24 11:20 12/18/24 11:22
12/17/24 12/18/24 12/19/24
06:59 06:59 06:59
Actual Weight 46.3 kg
12/18/24 04:37
12/18/24 04:37
Magnesium 1.7 mg/dl (1.6-2.3) 12/18/24 04:37
12/17/24
07:14
Zcm-L-Yiinlmgcqdr Pept 6700
LAB Results
12/17/24 12/17/24
07:14 09:03
Troponin I 0.019 0.015
Physical Exam
Constitutional: No acute distress
EENT: Anicteric
Cardiovascular: Pedal edema is absent, Rhythm/rate is irregular and Murmur/rub/gallop absent
Respiratory: Respiratory effort normal
GI: Soft and Distention absent
Neuro/Psych: AO x 3
Data Reviewed
-
Date of Service: December 18, 2024
[2024-12-18] MEDS: PACERONE 200 MG PO (15:28)
--- NOTE | 2024-12-18 17:37 | PTCARENOTE ---
pt continues to be afib on the monitor, hr in the 80s, vss. pt offers no complaints at this time. pt educated on afib and new medications. educational material given. pt educated on plan of care of and pt verbalized understanding. call mckeon within
reach.
[2024-12-19 01:51] VITALS: BP 127/96
[2024-12-19] MEDS: CODEINE 60 MG PO ×4 (02:04→22:33)
[2024-12-19] MEDS: TYLENOL 325 MG PO ×3 (02:04→22:33)
[2024-12-19 02:21] LABS: Hematocrit 41.9 % (37.0-47.0); Hemoglobin 14.2 g/dL (12.0-16.0); Mean Corp Hgb Conc. 33.9 g/dL (33.0-37.0); Mean Corpuscular Volume 85.7 fL (81.0-99.0); Mean Platelet Volume 10.1 fL (7.4-10.4); Platelet Count 241 10^3/uL (130-400); Red Blood Cell Count 4.89 10^6/uL (4.20-5.40); Red Cell Dist. Width 15.7 % (11.5-14.5)
[2024-12-19 02:44] LABS: Blood Urea Nitrogen 33 mg/dl (7-17); Calcium 9.3 mg/dl (8.4-10.2); Carbon Dioxide 28 mmol/L (22-30); Chloride 94 mmol/L (98-107); Estimated Creatinine Clearance 33 ml/min; Glucose 113 mg/dl (70-99); Potassium 3.8 mmol/L (3.5-5.1); Sodium 134 mmol/L (135-145); eGFR > 60.00
[2024-12-19 03:17] LABS: TSH Reflex To Free T4 2.65 uIU/ml (0.47-4.68)
[2024-12-19 03:54] VITALS: BMI 19.4
[2024-12-19] MEDS: SYNTHROID PO (06:45)
--- NOTE | 2024-12-19 06:45 | PTCARENOTE ---
Pt. remained in A-fib overnight, no complaints of CP or SOB. Medicated for lower back pain with Tylenol/Codeine with adequate relief obtained. Ambulates with assist x 1, does best with rolling walker, fall precautions reinforced with pt.,
understanding verbalized.
[2024-12-19] MEDS: SYNTHROID 50 MCG PO (06:47)
[2024-12-19] MEDS: LASIX 20 MG IV (07:48)
[2024-12-19 07:53] VITALS: BP 142/99
--- NOTE | 2024-12-19 08:21 | W.PN.CD ---
Addendum entered and electronically signed by Lars Hi MD 12/19/24 08:33:
-
Will increase Lasix as she is not losing weight on 20 IV BID.
-
-
Original Note:
Today's Communication / Plan
-
Continue IV diuresis
BRI/DCCV
Will need to convince her to retry HF meds!!!!!
Impression / Plan
-
HFmrEF
- Admit CXR c/w pulmonary edema
- acute on chronic, EF 45-50%.
- Continue IV diuresis.
- likely from progressive mitral regurgitation and AFIb => BRI to reassess MR and speed time to SINUS
- trend daily weights, I&Os.
Afib - new diagnosis as outpatient last week.
- rapid rates => improving.
- now on Eliquis 2.5mg bid, continue.
- continue meds. Agreeable to try Amio 200 daily, understands AFib more likely to recur with incomplete Amio loading, she is will to need second cardioversion
- consider BRI/DCCV after diuresis.
Cardiomyopathy - nonischemic, EF 45-50%.
- Cardiac MRI w/o acute findings.
- did not tolerate SGLT2, MRA (rash with Aldactone), hydralazine, valsartan => Will suggest she retry HF MEDS
Mitral regurgitation - moderate on TTE 12/02/24, CMR and BRI 08/2023.
- will reassess MR with BRI after diuresis.
HTN - labile.
Multiple drug intolerances
Hx B Cell lymphoma
Subjective: A bit better today
CXR 12/17/2024:
1. Severely increased interstitial markings with moderate ground-glass opacity throughout the right lung (less pronounced in the left lung) which appears new from 11/23/2024 and is likely ACUTE INTERSTITIAL and ALVEOLAR CARDIOGENIC PULMONARY
EDEMA. Right lower lobe pneumonia is an alternative diagnostic possibility if there are signs/symptoms of infection (although probably less likely).
2. Moderate cardiomegaly.
3. Moderate scoliotic curvature of the thoracolumbar spine.
Echo 12/02/2024: LVEF is 45-50%, global hypo, moderate MR (prior BRI prolapse at P2), miild AR, PASP 35, RA 3, stable from 08/2023
Physical Exam
Vital Signs/Labs
Vital Signs
Temp Pulse Resp BP Pulse Ox
97.4 F 98 16 142/99 97
12/19/24 07:59 12/19/24 07:53 12/19/24 07:59 12/19/24 07:53 12/19/24 07:57
12/18/24 12/19/24 12/20/24
06:59 06:59 06:59
Actual Weight 46.3 kg 46.6 kg
12/19/24 01:56
12/19/24 01:56
Magnesium 1.7 mg/dl (1.6-2.3) 12/18/24 04:37
12/17/24
07:14
Esn-C-Biiziebvmvq Pept 6700
LAB Results
12/17/24 12/17/24
07:14 09:03
Troponin I 0.019 0.015
Physical Exam
Constitutional: No acute distress
EENT: Anicteric
Cardiovascular: Rhythm/rate is irregular and S1S2 is normal
Respiratory: Respiratory effort normal and Crackles Present
GI: Soft and Distention absent
Neuro/Psych: AO x 3
Data Reviewed
-
Date of Service: December 19, 2024
[2024-12-19] MEDS: PACERONE 200 MG PO (08:54)
[2024-12-19] MEDS: ELIQUIS 2.5 MG PO ×2 (08:55→19:54)
[2024-12-19] MEDS: TOPROL XL 50 MG PO ×2 (08:55→19:54)
--- NOTE | 2024-12-19 09:31 | W.PN.HOSP.TC ---
Today's Communication/Plan
-
NPO after midnight.
Assessment / Plan
Assessment / Plan
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 She also c/o orthopnea, HAMM and mild leg swelling.
She denied to cough, fever/chills etc.
A/P:
1. Acute on chronic systolic CHF
BNP 6700
CXR: Severely increased interstitial markings with moderate ground-glass opacity throughout the right lung (less pronounced in the left lung)
which appears new from 11/23/2024 and is likely ACUTE INTERSTITIAL and ALVEOLAR CARDIOGENIC PULMONARY EDEMA.
Echo from 12/02/2024: Mildly reduced systolic function, EF 45-50%. Mild global hypokinesis. Moderate mitral regurgitation.
Cont IV lasix (dosage per cardiology team), monitor daily weight , I/O etc.
Card CS ongoing - please see daily CS note
2. Recently new diagnosis of A fib, suspect paroxysmal
Continues today
Continue home Toprol with holding parameter
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
Plan is BRI tomorrow and hopefully cardioversion if appropriate
NPO after midnight
3. Hypothyroidism - chronic
Check TSH reflex FT4
cont SHELLFISH PROCESSING LABORER Synthroid
5. Labile hypertension - Chronic
Continue home Toprol with holding parameter
6. Other notable dianosis:
CVA in 2006
Sarcoidosis
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
Sjogren syndrome
Polymyositis
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
Recent compression fracture of lumbar spine.
7. PT OT eval requested
DVT ppx: SHELLFISH PROCESSING LABORER Eliquis
Full code
Anticipated Discharge: 24 - 48 hours
Subjective/Interval History
-
Date of Service: December 19, 2024
Did not sleep well, but otherwise OK.
Objective Data
-
Labs:
Laboratory Results
12/19/24
01:56
WBC 8.0
Hgb 14.2
Hct 41.9
Plt Count 241
Sodium 134 L
Potassium 3.8
Chloride 94 L
Carbon Dioxide 28
BUN 33 H
Creatinine 0.9
Glucose 113 H
Calcium 9.3
Vital Signs:
Vital Signs
Temp Pulse Resp BP Pulse Ox
97.4 F 98 16 142/99 97
12/19/24 07:59 12/19/24 07:53 12/19/24 07:59 12/19/24 07:53 12/19/24 07:57
I&O
12/18/24 12/19/24 12/20/24
06:59 06:59 06:59
Intake Total 240 / 240 480 / 480
Output Total 675 / 675
Balance -435 / -435 480 / 480
Review of Systems
-
History Source: Patient
All other systems: Reviewed and negative
Physical Exam
-
General: Well Developed, Well Nourished, No Apparent Distress and Comfortable
HEENT: Nose Appears Normal and Ears Appear Normal
Respiratory: Clear to Auscultation
Cardiac: S1/S2 and Irregular Rhythm
GI: Soft, Nontender and Nondistended
Musculoskeletal: No Clubbing and No Cyanosis
Skin: Warm and Dry
Neuro: Awake, Alert and Oriented
Psych: Calm
Data Reviewed
-
Labs: Labs Reviewed by me
[2024-12-19 11:49] VITALS: BP 129/74
[2024-12-19] MEDS: LASIX 40 MG IV (15:23)
[2024-12-19 17:19] VITALS: BP 124/72
--- NOTE | 2024-12-19 17:27 | PTCARENOTE ---
Pt received this am in Afib, rate in the 70's to 90's. C/O of middle upper spine pain with relief using the PRN codeine. Room air sat 98%. Pt states she has occasional sob at rest but better after starting the lasix.
[2024-12-19 19:47] VITALS: BP 113/88
[2024-12-19 22:29] VITALS: BP 140/73
--- NOTE | 2024-12-20 00:24 | PTCARENOTE ---
Pt. oriented x 3 and ambulatory with assist x 1 & RW -remains in A-fib, rates 70's-110's with activity. Plan for BRI/CV in AM, NPO after midnight. Pt. aware and verbalizes understanding. Currently sleeping.
[2024-12-20 03:42] VITALS: BMI 18.8
[2024-12-20 03:44] VITALS: BP 135/92
[2024-12-20] MEDS: SYNTHROID 50 MCG PO (03:57)
[2024-12-20 05:19] LABS: Hematocrit 41.2 % (37.0-47.0); Mean Corpuscular Volume 85.3 fL (81.0-99.0); Mean Platelet Volume 10.6 fL (7.4-10.4); Platelet Count 249 10^3/uL (130-400); Red Blood Cell Count 4.83 10^6/uL (4.20-5.40); Red Cell Dist. Width 15.5 % (11.5-14.5); White Blood Cell Count 7.2 10^3/uL (4.8-10.8)
[2024-12-20 05:47] LABS: Blood Urea Nitrogen 34 mg/dl (7-17); Calcium 9.2 mg/dl (8.4-10.2); Carbon Dioxide 30 mmol/L (22-30); Chloride 95 mmol/L (98-107); Estimated Creatinine Clearance 36 ml/min; Glucose 96 mg/dl (70-99); Potassium 3.7 mmol/L (3.5-5.1); Sodium 136 mmol/L (135-145); eGFR > 60.00
[2024-12-20 07:21] VITALS: BP 131/88
[2024-12-20] MEDS: TOPROL XL 50 MG PO ×2 (08:51→19:57)
[2024-12-20] MEDS: LASIX 40 MG IV ×2 (08:52→15:38)
[2024-12-20] MEDS: ELIQUIS 2.5 MG PO ×2 (08:52→19:56)
[2024-12-20] MEDS: PACERONE 200 MG PO (08:52)
[2024-12-20 08:54] VITALS: BMI 18.8
--- NOTE | 2024-12-20 09:49 | W.PN.CD ---
Today's Communication / Plan
-
Plan for BRI cardioversion Later today.
Procedure and risks reviewed. Consent signed
Continue amiodarone and anticoagulation with Eliquis
Impression / Plan
-
HFmrEF
- Admit CXR c/w pulmonary edema
- acute on chronic, EF 45-50%.
- Continue IV diuresis.
- likely from progressive mitral regurgitation and AFIb => BRI to reassess MR and speed time to SINUS
- trend daily weights, I&Os.
Afib - new diagnosis as outpatient last week.
- rapid rates => improving.
- now on Eliquis 2.5mg bid, continue.
- continue meds. As per Dr. Hi's notes. The patient understands AFib more likely to recur with incomplete Amio loading, she is will to need second cardioversion
- Plan forTEE/DCCV
Cardiomyopathy - nonischemic, EF 45-50%.
- Cardiac MRI w/o acute findings.
- did not tolerate SGLT2, MRA (rash with Aldactone), hydralazine, valsartan => Per previous notes there was some consideration about retrial of medications. This may be if the intolerance is not quite clear.
Mitral regurgitation - moderate on TTE 12/02/24, CMR and BRI 08/2023.
- will reassess MR with RBI .Note patient is in A-fib
HTN - labile.
Multiple drug intolerances
Hx B Cell lymphoma
Subjective: A bit better today
CXR 12/17/2024:
1. Severely increased interstitial markings with moderate ground-glass opacity throughout the right lung (less pronounced in the left lung) which appears new from 11/23/2024 and is likely ACUTE INTERSTITIAL and ALVEOLAR CARDIOGENIC PULMONARY
EDEMA. Right lower lobe pneumonia is an alternative diagnostic possibility if there are signs/symptoms of infection (although probably less likely).
2. Moderate cardiomegaly.
3. Moderate scoliotic curvature of the thoracolumbar spine.
Echo 12/02/2024: LVEF is 45-50%, global hypo, moderate MR (prior BRI prolapse at P2), miild AR, PASP 35, RA 3, stable from 08/2023
Physical Exam
Vital Signs/Labs
Vital Signs
Temp Pulse Resp BP Pulse Ox
97.6 F 84 20 131/88 98
12/20/24 07:21 12/20/24 08:52 12/20/24 07:21 12/20/24 08:52 12/20/24 07:21
12/19/24 12/20/24 12/21/24
06:59 06:59 06:59
Actual Weight 46.6 kg 45.1 kg
12/20/24 03:53
12/20/24 03:53
Magnesium 1.7 mg/dl (1.6-2.3) 12/18/24 04:37
12/17/24
07:14
Htp-D-[id number] Pept 6700
Physical Exam
Constitutional: No acute distress
Cardiovascular: Rhythm/rate is irregular
Respiratory: Wheeze Absent
GI: Soft
Neuro/Psych: Alert
Data Reviewed
-
Date of Service: December 20, 2024
Medical Decision Making: Reviewed Test Results
X-Ray/CT/US/MRI/NUC/PET: Report Reviewed by me
Medical Tests (PFT, Pathology etc): Report Reviewed by me
Labs: Labs Reviewed by me
--- NOTE | 2024-12-20 09:55 | PTCARENOTE ---
report given, pt off unit for cv.
--- NOTE | 2024-12-20 11:08 | W.PN.UPDATE ---
Update Note
Progress Note Update
BRI/cardioversion.
Successful conversion of A-fib to sinus rhythm.
Moderate to severe MR. Full report to follow
--- NOTE | 2024-12-20 11:13 | CM ---
Chart reviewed. Patient is independent of ADLS, lives with her in a 1 STH, 2 UCHE, 0 DME. Plan is for the patient to return home with VN. CM to follow
--- NOTE | 2024-12-20 14:24 | W.PN.HOSP.TC ---
Today's Communication/Plan
-
Monitor vital signs see plan
Continue IV diuresis
Now in normal sinus rhythm, monitor
Assessment / Plan
Assessment / Plan
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 She also c/o orthopnea, HAMM and mild leg swelling.
She denied to cough, fever/chills etc.
A/P:
Acute on chronic systolic CHF
BNP 6700
CXR: Severely increased interstitial markings with moderate ground-glass opacity throughout the right lung (less pronounced in the left lung)
which appears new from 11/23/2024 and is likely ACUTE INTERSTITIAL and ALVEOLAR CARDIOGENIC PULMONARY EDEMA.
Echo from 12/02/2024: Mildly reduced systolic function, EF 45-50%. Mild global hypokinesis. Moderate mitral regurgitation.
Cont IV lasix (dosage per cardiology team), monitor daily weight , I/O etc.
Cardiology following
Recently new diagnosis of A fib, suspect paroxysmal
Status post BRI cardioversion, successful
Continue to monitor
Continue home Toprol with holding parameter
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
Plan is BRI tomorrow and hopefully cardioversion if appropriate
Continue IV Lasix
Hypothyroidism - chronic
cont [employer]SEMBLER [employer] Synthroid
Labile hypertension - Chronic
Continue home Toprol with holding parameter
Other notable dianosis:
CVA in 2006
Sarcoidosis
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
Sjogren syndrome
Polymyositis
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
Recent compression fracture of lumbar spine.
PT OT eval requested
DVT ppx: ASSEMBLER [employer] Eliquis
Full code
General: Well Developed, Well Nourished, No Apparent Distress and Comfortable
HEENT: Nose Appears Normal and Ears Appear Normal
Respiratory: Clear to Auscultation
Cardiac: S1/S2 and Irregular Rhythm
GI: Soft, Nontender and Nondistended
Musculoskeletal: No Clubbing and No Cyanosis
Neuro: Awake, Alert and Oriented
Psych: Calm
Anticipated Discharge: Within 24 hours
Subjective/Interval History
-
Date of Service: December 20, 2024
Denies pain
Objective Data
-
Labs:
Laboratory Results
12/20/24
03:53
WBC 7.2
Hgb 14.0
Hct 41.2
Plt Count 249
Sodium 136
Potassium 3.7
Chloride 95 L
Carbon Dioxide 30
BUN 34 H
Creatinine 0.8
Glucose 96
Calcium 9.2
Vital Signs:
Vital Signs
Temp Pulse Resp BP Pulse Ox
97.6 F 56 20 131/88 93
12/20/24 07:21 12/20/24 12:00 12/20/24 07:21 12/20/24 08:52 12/20/24 07:50
I&O
12/19/24 12/20/24 12/21/24
06:59 06:59 06:59
Intake Total 480 / 480 240 / 240 50 / 50
Balance 480 / 480 240 / 240 50 / 50
[2024-12-20 15:22] VITALS: BP 137/69
[2024-12-20] MEDS: CODEINE 60 MG PO ×2 (15:36→23:22)
[2024-12-20] MEDS: TYLENOL 325 MG PO ×2 (15:37→23:23)
--- NOTE | 2024-12-20 16:14 | PTCARENOTE ---
pt is sr on the monitor, hr in the 60s, vss. py c/o back pain, Tylenol/codeine given as ordered, see MAR. Pt offers no other complaints at this time. pt is resting in bed comfortably. pt educated on plan of care and pt verbalized understanding. call
mckeon within reach.
[2024-12-20 19:30] VITALS: BP 129/66
[2024-12-20 19:57] VITALS: BP 146/67
--- NOTE | 2024-12-20 21:14 | PTCARENOTE ---
Received pt @ change of shift. AAOx3. VSS-- NSR w/ PACs on monitor. Discussed plan of care for the evening. Pt states being very tired from the last couple weeks of A-fib, but now feels like she 'is no longer racing.' Stressed the importance of
calling care team for getting out of bed, pt verbalizes understanding. Call mckeon within reach.
[2024-12-20 22:45] VITALS: BP 143/73
[2024-12-21] VITALS (8 sets, daily range): BP systolic 133–171; BP diastolic 63–93; PULSE 62; BMI 18.8
[2024-12-21] MEDS: SYNTHROID 50 MCG PO (05:22)
[2024-12-21 05:37] LABS: % Basophils 0.4 % (0-2); % Eosinophils 1.5 % (0-6); % Immature Granulocytes 0.2 % (0-0.5); % Lymphocytes 28.5 % (20.5-51.1); % Monocytes 17.3 % (1.7-9.3); % Neutrophils 52.1 % (42.2-75.2); Absolute Eosinophils 0.1 10^3/uL (0-0.7); Absolute Lymphocytes 1.4 10^3/uL (1.2-3.4); Absolute Monocytes 0.8 10^3/uL (0.1-0.6); Absolute Neutrophils 2.5 10^3/uL (1.4-6.5); Hematocrit 36.7 % (37.0-47.0); Hemoglobin 12.5 g/dL (12.0-16.0); Mean Corp Hgb Conc. 34.1 g/dL (33.0-37.0); Mean Corpuscular Hgb 29.3 pg (27.0-31.0); Mean Corpuscular Volume 85.9 fL (81.0-99.0); Mean Platelet Volume 10.3 fL (7.4-10.4); Nucleated Red Blood Cells % 0 %; Platelet Count 216 10^3/uL (130-400); Red Blood Cell Count 4.27 10^6/uL (4.20-5.40); Red Cell Dist. Width 15.6 % (11.5-14.5); White Blood Cell Count 4.8 10^3/uL (4.8-10.8)
[2024-12-21 06:07] LABS: Blood Urea Nitrogen 35 mg/dl (7-17); Calcium 9.1 mg/dl (8.4-10.2); Carbon Dioxide 31 mmol/L (22-30); Chloride 94 mmol/L (98-107); Estimated Creatinine Clearance 32 ml/min; Glucose 82 mg/dl (70-99); Potassium 3.7 mmol/L (3.5-5.1); Sodium 136 mmol/L (135-145); eGFR > 60.00
--- NOTE | 2024-12-21 07:41 | W.PN.CD ---
Today's Communication / Plan
-
remains in NSR 24 hours after CV
feels significantly better now that she is in sinus rhythm resp status close to baseline
continue amiodarone
continue Eliquis
Optimization of medical therapy is limited by med intolerances
continue lasix will consider transition to oral lasix after morning dosing. Noam was not on lasix prior to admit. Would transition to lasix 40mg PO daily when changing to oral
repeat CXR
ambulate
Impression / Plan
-
HFmrEF
- Admit CXR c/w pulmonary edema
- acute on chronic, EF 45-50%.
- Continue IV diuresis.
- likely from progressive mitral regurgitation and AFIb
- trend daily weights, I&Os.
Afib - new diagnosis as outpatient last week.
- Amiodarone initiated this admit
- BRI/CV 12/20/34
- Eliquis 2.5mg bid .
- Plan for BRI/DCCV
- HADSVASC 5 ( age >75, HF, female , HTN)
Cardiomyopathy - nonischemic, EF 45-50%.
- Cardiac MRI w/o acute findings.
- did not tolerate SGLT2, MRA (rash with Aldactone), hydralazine, valsartan => Per previous notes there was some consideration about retrial of medications. This may be if the intolerance is not quite clear.
Mitral regurgitation - moderate on TTE 12/02/24, CMR and BRI 08/2023.
- Most recent TEEperformed while patietn in afib.
- MR - moderate to severe.
- increased compare to prior study (patient in afib during the study)
- May consdier reassesement of MR while patient in sinus and medially optimized. Tx options for MR can be reassessed as outpatient
HTN - labile.
Multiple drug intolerances
Hx B Cell lymphoma
Subjective:
improving
remains in NSR 24 hours after CV
CXR 12/17/2024:
1. Severely increased interstitial markings with moderate ground-glass opacity throughout the right lung (less pronounced in the left lung) which appears new from 11/23/2024 and is likely ACUTE INTERSTITIAL and ALVEOLAR CARDIOGENIC PULMONARY
EDEMA. Right lower lobe pneumonia is an alternative diagnostic possibility if there are signs/symptoms of infection (although probably less likely).
2. Moderate cardiomegaly.
3. Moderate scoliotic curvature of the thoracolumbar spine.
Echo 12/02/2024: LVEF is 45-50%, global hypo, moderate MR (prior BRI prolapse at P2), miild AR, PASP 35, RA 3, stable from 08/2023
Physical Exam
Vital Signs/Labs
Vital Signs
Temp Pulse Resp BP Pulse Ox
97.7 F 51 16 146/63 99
12/21/24 07:38 12/21/24 06:00 12/21/24 07:38 12/21/24 05:08 12/21/24 07:38
12/20/24 12/21/24 12/22/24
06:59 06:59 06:59
Actual Weight 45.1 kg 45 kg
12/21/24 05:19
12/21/24 05:19
Magnesium 1.7 mg/dl (1.6-2.3) 12/18/24 04:37
12/17/24
07:14
Qtz-L-Jiaifqfbgiz Pept 6700
Physical Exam
Constitutional: No acute distress
Cardiovascular: Rhythm & rate is regular and Systolic murmur present
Respiratory: Wheeze Absent and Rhonchi Absent
GI: Soft
Neuro/Psych: Alert
Data Reviewed
-
Date of Service: December 21, 2024
Medical Decision Making: Reviewed Test Results
Echo: Report Reviewed by me
X-Ray/CT/US/MRI/NUC/PET: Report Reviewed by me
Labs: Labs Reviewed by me
[2024-12-21] MEDS: ELIQUIS 2.5 MG PO (08:38)
[2024-12-21] MEDS: PACERONE 200 MG PO (08:38)
[2024-12-21] MEDS: TOPROL XL 50 MG PO (08:38)
[2024-12-21] MEDS: LASIX 40 MG IV (09:50)
--- NOTE | 2024-12-21 10:47 | CM ---
Chart reviewed. Patient is independent of ADLS, lives with her in a 1 STH, 2 UCHE, 0 DME. PT recommending rolling walker to go home and Home PT. Patient refusing Home PT. Script to be ordered for home RW. Plan is for the patient to
return home. CM to follow
--- NOTE | 2024-12-21 12:12 | W.PN.HOSP.TC ---
Today's Communication/Plan
-
Monitor vitals
See plan
Discussed with cardiology, transition to p.o. Lasix
Discharge today
Time of discharge 38 minutes
Assessment / Plan
Assessment / Plan
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 She also c/o orthopnea, HAMM and mild leg swelling.
She denied to cough, fever/chills etc.
A/P:
Acute on chronic systolic CHF
BNP 6700
CXR: Severely increased interstitial markings with moderate ground-glass opacity throughout the right lung (less pronounced in the left lung)
which appears new from 11/23/2024 and is likely ACUTE INTERSTITIAL and ALVEOLAR CARDIOGENIC PULMONARY EDEMA.
Echo from 12/02/2024: Mildly reduced systolic function, EF 45-50%. Mild global hypokinesis. Moderate mitral regurgitation.
continue with diuresis
cardiology following
Recently new diagnosis of A fib, suspect paroxysmal
Status post BRI cardioversion, successful
Continue to monitor
Continue home Toprol with holding parameter
Now on daily amiodarone
s/p successful BRI cardioversion 12/20
Discussed with cardiology, transition to p.o. Lasix. X-ray today showing improvement
Hypothyroidism - chronic
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
Labile hypertension - Chronic
Continue home Toprol with holding parameter
Other notable dianosis:
CVA in 2006
Sarcoidosis
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
Sjogren syndrome
Polymyositis
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
Recent compression fracture of lumbar spine.
DVT ppx: SCALE AND SKIP CAR OPERATOR Eliquis
Full code
General: Well Developed, Well Nourished, No Apparent Distress and Comfortable
HEENT: Nose Appears Normal and Ears Appear Normal
Respiratory: Clear to Auscultation
Cardiac: S1/S2 and Irregular Rhythm
GI: Soft, Nontender and Nondistended
Neuro: Awake, Alert and Oriented
Psych: Calm
Anticipated Discharge: Today
Subjective/Interval History
-
Date of Service: December 21, 2024
denies pain
Objective Data
-
Labs:
Laboratory Results
12/21/24
05:19
WBC 4.8
Hgb 12.5
Hct 36.7 L
Plt Count 216
Sodium 136
Potassium 3.7
Chloride 94 L
Carbon Dioxide 31 H
BUN 35 H
Creatinine 0.9
Glucose 82
Calcium 9.1
Vital Signs:
Vital Signs
Temp Pulse Resp BP Pulse Ox
97.8 F 64 18 133/66 96
12/21/24 12:05 12/21/24 10:00 12/21/24 12:05 12/21/24 09:50 12/21/24 12:05
I&O
12/20/24 12/21/24 12/22/24
06:59 06:59 06:59
Intake Total 240 / 240 530 / 530
Balance 240 / 240 530 / 530
--- NOTE | 2024-12-21 13:27 | W.DCSUMMARY ---
Discharge Summary
Discharge Data
Date of Admission: 12/17/24
Date of Discharge: 12/21/24
-
Pending Results: No
Hospital Course
84-year-old female with recent diagnosis of CHF and A-fib came to the hospital with shortness of breath known to be in acute on chronic congestive heart failure exacerbation. Patient was initially started on IV Lasix which was later transitioned to
oral Lasix prior to discharge. Regarding her atrial fibrillation, she was seen by cardiology throughout hospitalization. Her Cardizem was stopped and instead her metoprolol was increased. She also went for successful BRI cardioversion on this
hospitalization. She remained in normal sinus rhythm prior to discharge. Repeat chest x-ray prior to discharge showed improvement. Once her symptoms continue to improve, she was then discharged home with instructions to follow-up closely with PCP
and cardiology outpatient.
Discharge Plan
-
Patient Disposition: Home (Routine Discharge)
Discharge Diagnosis/Procedures: Acute on chronic systolic CHF
Paroxysmal atrial fibrillation
Diet: As tolerated and 2 Gram Sodium
Activity: As tolerated
Driving Restrictions: As prior to admission
Bathing Restrictions: None
Blood Work: BMP next week with primary care provider or cardiology
Instructions: *CBC Heart Failure Instructions
Referrals:
Christopher Orta MD [Active] -
Bello Valentin MD [Family Provider] - in less than 1 week
Prescriptions:
New
furosemide 40 mg Tablet
40 mg PO DAILY Qty: 30 0RF
metoprolol succinate 50 mg Tablet Extended Release 24 Hr
50 mg PO BID Qty: 60 0RF
Continued
levothyroxine 50 MCG tablet
50 mcg PO DAILY
sennosides [senna] 8.6 mg Tablet
8.6 mg PO BIDPRN PRN (Reason: constipation)
polyethylene glycol 3350 [Miralax] 17 gram Powder In Packet
17 g PO DAILYPRN PRN (Reason: constipation)
acetaminophen-codeine 300-60 mg tablet
1 tab PO QIDPRN PRN (Reason: severe pain)
Eliquis 2.5 mg Tablet
2.5 mg PO BID
Changed
amiodarone 200 mg Tablet
200 mg PO DAILY Qty: 30 0RF
Discontinued
metoprolol succinate [Toprol XL] 50 mg Tablet Extended Release 24 Hr
50 mg PO DAILY
diltiazem HCl 120 mg Capsule,Extended Release 24hr
120 mg PO DAILY
Discharge Orders:
Discharge Patient (As Directed); Ordered 12/21/24
Ordered By: Judson Mobley
Care Plan Goals
Care Plan Goals:
Problem: Readiness for enhanced knowledge related to diagnosis and treatment plan
Goal: Understand your diagnosis and treatment plan needs, including medications if applicable.
Instructions: Know your diagnosis, underlying causes and treatment plan options, including medications if applicable. Consult with your health care team to learn about your diagnosis and treatment plan, including medications if applicable.
Discharge Date and Time
Discharge Date/Time: 12/21/24 15:10
Print Language: LAO
[2024-12-21] MEDS: CODEINE 60 MG PO (13:52)
[2024-12-21] MEDS: TYLENOL 325 MG PO (13:52)
--- NOTE | 2024-12-21 14:31 | PTCARENOTE ---
Discussed plan of care w/ pt.
== END 2024-12-21 15:10 | disposition home or self-care (01) | DRG 291 ==
LOC: IVU 12:13
PROVIDERS: Internal Medicine; Internal Medicine Cardiovascular Disease; Physician Assistant; ADMITTING PHYSICIAN Internal Medicine; ATTENDING PHYSICIAN Internal Medicine; CONSULT PHYSICIAN Internal Medicine Cardiovascular Disease; EMERGENCY PHYSICIAN Emergency Medicine; FAMILY PHYSICIAN Family Medicine
PROC: B24BZZ4 Ultrasonography of Heart with Aorta, Transesophageal (ICD-10-PCS; 2024-12-17)
PROC: 5A2204Z Restoration of Cardiac Rhythm, Single (ICD-10-PCS; 2024-12-17)
DX: I11.0 Hypertensive heart disease with heart failure (principal); I50.23 Acute on chronic systolic (congestive) heart failure; I48.0 Paroxysmal atrial fibrillation; I42.8 Other cardiomyopathies; I34.0 Nonrheumatic mitral (valve) insufficiency; E03.9 Hypothyroidism, unspecified; G96.198 Other disorders of meninges, not elsewhere classified; Z86.73 Personal history of transient ischemic attack (TIA), and cerebral infarction without residual deficits; Z86.61 Personal history of infections of the central nervous system
CPT/HCPCS: 71046; 80048; 80053; 83735; 83880; 84443; 84484; 85025; 85027; 92960; 93005; 93312; 93320; 93325; 96372; 96374; 97116; 97162; 97166; 97530; 99285

== ENCOUNTER → 2025-02-11 07:59 | Outpatient (REF) | payer MEDICARE, OTHER, SELFPAY | LOC: RCS 07:59 | PROVIDERS: ATTENDING PHYSICIAN Nurse Practitioner Gerontology; FAMILY PHYSICIAN Family Medicine | DX: I34.0 Nonrheumatic mitral (valve) insufficiency (principal) | CPT/HCPCS: 93308; 93321; 93325 ==

== ENCOUNTER 2025-05-03 04:56 | Inpatient (IN) | payer MEDICARE, OTHER, SELFPAY ==
--- NOTE | 2025-04-26 09:48 | HPS.HSE ---
Family Physician
-
Family Physician: Bello Valentin
Cardiology:Dr. Hancock
Chief Complaint
-
Pre-operative History and Physical
History of Present Illness
Aleshia King is a pleasant 84-year-old female with a past medical history of progressive mitral valve regurgitiaton, diffuse large cell lymphoma--never any radiation just chemo, CVA in 2006 (loss of vision), labile hypertension, Sjogren's
syndrome diagnosed 40 years ago, polymyositis, sarcoidosis ([place]), arachnoiditis and atypical chest pain who presents for pre-operative history and physical prior to M-CHUCHO. She denies chest pain, dizziness, and shortness of
breath.Hospitalization 12/17 - 12/21/2024: Acute heart failure and atrial fibrillation with rapid ventricular response. Diuresed with intravenous furosemide and BRI guided DCCV 12/20/2024. Echocardiogram on 02/11/2025 notable for Thickened mitral valve
leaflets with mild posterior leaflet prolapse and mitral annular calcification. There is moderate to severe mitral regurgitation. LVEF 60%. Cardiac cath was completed 08/28/2022: Left dominant circulation with a nonocclusive 40% ostial LAD lesion
(IFR = 0.96). She denies chest pain, palpitations, orthopnea, HAMM. She does complain of PND. No complaint of edema. Patient was reviewed by the structural heart team and felt to be a candidate for M-CHUCHO.
Medical History
Past Medical History
Past Medical History: Reports Arrhythmia (Perisistant A-fib (Eliquis) ChadsVasc:6, h/o non-sustained VT), CAD, CVA (2006-loss of vision), HTN, Hypothyroidism, Valvular Disease (MR, trace AI) and Other
Additional Past Medical History:
Cardiomyopathy
Mild pulmonary HTN
Sarcoid
Sjogren's syndrome
non-hodgkin's [id number] at [facility]
Seasonal allergies
Past Surgical History: Reports Appendectomy, Gynocological (total hysterectoomy) and Other (submandibular gland extraction, right eye surgery)
Social History
Tobacco: Non-smoker
Alcohol: None
Drug: None
Personal:
Living: With Family
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
Family History
Family History: Not pertinent
Allergies / Home Medications
Allergies reflects when Allergies were last updated in [facility].
Home Medications with original date entered in [facility] [facility]
Allergy/Medication List:
Allergies:
Adhesive tape
PCN
Spironolactone
Sulfa
Medications:
Amiodarone HCl 100 MG Tablet 1 tablet Orally daily.
Eliquis(Apixaban) 2.5 MG Tablet take one tablet Orally twice a day.
Furosemide 40 MG Tablet 1 tablet Orally daily.
Losartan Potassium 25 MG Tablet 1 tablet Orally Once a day.
Metoprolol Succinate ER 50 MG Tablet Extended Release 24 Hour 1 tablet Orally bid.
Synthroid(Levothyroxine Sodium) 50 MCG Take one tablet by mouth daily Oral.
Review of Systems
-
History Source: Patient
Constitutional: Reports No Symptoms
EENT: Reports No Symptoms
Respiratory: Reports No Symptoms
Cardiac: Reports Other (PND); Denies Chest Pain or Palpitations
Abdomen/GI: Reports No Symptoms; Denies Abdominal Pain, Nausea or Vomiting
: Reports No Symptoms; Denies Dysuria or Urgency
Musculoskeletal: Reports Joint Pain (arthritis in neck); Denies Edema
Skin: Reports Other ('thin skin')
Neurological: Reports Other (h/o CVA 2006)
Endocrine: Reports No Symptoms
Hematologic/Lymphatic: Reports No Symptoms
Psych: Reports No Symptoms and Calm
Physical Exam
Physical Exam
General: Well Developed, Well Nourished, No Apparent Distress and Comfortable
HEENT: NormoCephalic and PERRLA
Respiratory: Clear; No Wheezes, Rales or Rhonchi
Cardiac: S1/S2, Regular Rhythm and Murmur (apex of heart); No Peripheral Edema
Breast: Deferred by me
GI: Soft, Non Tender, Non Distended and Normal Bowel Sounds
Rectal: Deferred by Provider
Genito-urinary: Deferred by me
Musculoskeletal: No Clubbing, No Cyanosis and No Edema
Skin: Warm and Dry
Neuro: AO x 3 and Nonfocal/grossly intact
Psych: Calm
Data Reviewed
-
Diagnostic Radiology: Report Reviewed by me
Medical Tests (Nuc Med, Echo, EKG etc): Report Reviewed by me
Lab Data: Labs Reviewed by me
Old Records: Reviewed (previous office notes and cardiac testing)
Impression/Plan
-
IMPRESSION:
Severe Mitral Regurgitation
PLAN:
-M-CHUCHO on 04/29/2025
-Hold Eliquis after evening dose on 04/30, begin ASA 324mg 05/01, Aspiring 81mg 05/02 and 05/03
-5am arrival 04/29/2025
-Take Syntrhoid and ASA prior to arrival
-Cardiac rehab consult
-POD #1/#30 Echocardiogram
Laboratory Results
-
Laboratory Data
04/26/25 12:20
PT 14.4 Sec (11.4-14.6) 04/26/25 12:20
INR 1.09 04/26/25 12:20
[2025-04-26 12:09] VITALS: BMI 19.7
[2025-04-26 12:58] LABS: Hematocrit 40.5 % (37.0-47.0); Hemoglobin 13.5 g/dL (12.0-16.0); Mean Corp Hgb Conc. 33.3 g/dL (33.0-37.0); Mean Corpuscular Volume 94.0 fL (81.0-99.0); Nucleated Red Blood Cells % 0 %; Platelet Count 248 10^3/uL (130-400); Red Cell Dist. Width 13.7 % (11.5-14.5)
[2025-04-26 13:10] LABS: INR 1.09; PT 14.4 Sec (11.4-14.6)
[2025-04-26 13:29] LABS: Urine Character Clear (Clear)
--- NOTE | 2025-04-26 13:42 | CM ---
Chart reviewed. Met with the patient and her in PAT. Reviewed preoperative and postoperative instructions and restrictions, along with showering guidelines. Gave patient 2 soaps. Patient is independent of ADLS, lives with her
in a 1 STH, 2 UCHE, 0 DME. Patient is agreeable to a home visit by CT Transitional RN. CHRISTINE to follow
[2025-04-26 13:46] LABS: Glycohemoglobin (HgbA1c) 5.5 % (4.0-5.6)
[2025-04-26 14:19] LABS: ALT (SGPT) 17 U/L (0-35); AST (SGOT) 30 U/L (14-36); Albumin 5.0 g/dl (3.5-5.0); Alkaline Phosphatase 114 U/L (38-126); Blood Urea Nitrogen 23 mg/dl (7-17); Calcium 9.8 mg/dl (8.4-10.2); Carbon Dioxide 32 mmol/L (22-30); Chloride 97 mmol/L (98-107); Estimated Creatinine Clearance 25 ml/min; Glucose 83 mg/dl (70-99); Potassium 4.1 mmol/L (3.5-5.1); Sodium 138 mmol/L (135-145); Total Protein 8.2 g/dl (6.3-8.2); eGFR 48.94
[2025-04-26 14:34] LABS: Urine Red Blood Cell 0-2 /HPF (0-2); Urine White Cell 0-2 /HPF (0-5)
[2025-05-03] VITALS (17 sets, daily range): BP systolic 107–197; BP diastolic 52–90; BMI 18.9
[2025-05-03] MEDS: BACTROBAN 2% OINTMENT 1 APPLIC NASAL (05:48)
--- NOTE | 2025-05-03 06:24 | PTCARENOTE ---
Received direct admit into room 2256 w/ spouse and daughter at bedside. Pt ambulated self, gait unsteady at times per pt. Denies any dizziness.
Pt AAOx3, Vitals obtained-- BP systolically in the 170s, pulse ox sating 99% RA. Lungs clear throughout. D/t hx of CVA in 2006 she has right eye field deficit. B/l lower legs with no edema. B/l DP pulses palpable and marked. Pt clipped and CHG
wipes completed. IV inserted w/out any complications. Pt reports nothing to eat since yesterday at 18:00. Pt reports taking 81mg Aspirin at 04:00 along w/ 50 mcg Levothyroxine. Last dose of Eliquis on 04/30. Home med list updated. While going
through admission questions and prepping patient for procedure she stated 'You Hs are bothering me'. Pt anxious and questionable agitated this am but cooperative with staff. No consent signed in chart at this time. Dr. Payne made aware via TT
and will consent when he arrives.
[2025-05-03] MEDS: VANCOCIN 200 IV (08:05)
[2025-05-03] MEDS: AZACTAM 2000 MG IV ×2 (08:10)
--- NOTE | 2025-05-03 08:25 | CM ---
Reviewed chart. Mrs King is in the operating room today. Prior to admission she resides with her spouse in a one story home with two steps to enter. Prior to admission she was independent with ambulation and adls. She does not have any DME in the
home. Medical work-up in progress. The discharge plan is to return home with her spouse and a home visit by the Transitional Care Nurse when medically stable.
[2025-05-03 10:34] LABS: ACT-LR - POC 284 Seconds (116-155)
[2025-05-03 10:34] LABS: ACT-LR - POC 306 Seconds (116-155)
[2025-05-03 10:35] LABS: ACT-LR - POC 324 Seconds (116-155)
[2025-05-03 11:01] LABS: ACT-LR - POC 322 Seconds (116-155)
[2025-05-03 11:32] LABS: ACT-LR - POC 268 Seconds (116-155)
[2025-05-03 12:13] LABS: ACT-LR - POC 397 Seconds (116-155)
--- NOTE | 2025-05-03 14:39 | PTCARENOTE ---
a line removed from rt wrist . small hematoma , held for 15 min . ecchomosis remains. pt co numbness. clark guzman hand . 95%;pulses ox w good pleth and positive circulation check. able to move fingers . also oneill cath inserted for co
pain at bladder and urethera. 500 cc yellow urine out. pt feels more comfortable
[2025-05-03] MEDS: SUBLIMAZE 50 MCG IV (14:52)
--- NOTE | 2025-05-03 16:10 | PTCARENOTE ---
Addendum entered by Beatriz Beebe RN 05/03/25 18:31:
R radial dsg intact and dry, R wrist very ecchymotic, soft with some slight swelling. Small bruise noted at inside of L bridge of nose.
Original Note:
Rec'd Pt s/p mitraclip, A,A+OX3, C/O some lower back pain that has been somewhat relieved with Fentanyl given earlier in recovery. R femoral dsg intact with small amt bloody drainage. Dressing changed by Arlette Palomo, pathology laboratory aides teacher RN.
--- NOTE | 2025-05-03 16:48 | PTCARENOTE ---
Greene cath removed as ordered without incident. Pt assisted OOB to BR, she voided approximately 200 ml in BR.
[2025-05-03] MEDS: LASIX 40 MG PO (17:13)
[2025-05-03] MEDS: TYLENOL 650 MG PO (18:23)
--- NOTE | 2025-05-03 18:35 | PTCARENOTE ---
Pt c/o frontal headache, requesting Tylenol, med with 650 mg Of PO Tylenol, as ordered.
--- NOTE | 2025-05-03 18:42 | ITS.CL.PN ---
Arcade Attendant - Procedure Note
Procedure
Procedure Note:
Mitral Valve Transcatheter [id number] Repair with MitraClip
Date of Procedure: 05/03/2025
Referring: Dr. Remi Hancock MD
Indication: severe secondary mitral regurgitation with moderately reduced ejection fraction and NYHA class III symptoms despite GDMT optimization and COMPANY MANAGER implantation
Operators: Russell Payne MD, PhD (interventional cardiology, co-beam dyer operator); Dr. Xiomara Lind MD (interventional cardiology, co-beam dyer operator); Dr. Remi Hancock MD (cardiac imaging)
Anesthesia: general anesthesia provided by the anesthesia staff
PROCEDURES: mitral transcatheter edge to edge repair with MitraClip G4 system and NTW clip implantation
ACCESS: 25F right femoral vein (closure: Perclose x2) - Ultrasound was utilized for vascular access. The vessel was visualized under ultrasound and noted to be patent. An image of the vessel was stored permanently in the patient's medical record.
Under direct ultrasound guidance, vascular access was obtained using a modified Seldinger technique and a 8 [place] sheath was placed.
PROCEDURE NARRATIVE:
The patient was intubated and sedated by anesthesiology and then prepped and draped in standard sterile fashion. A BRI probe was placed by cardiology and imaging performed demonstrating no left atrial appendage thrombus and no pericardial effusion.
Under ultrasound guidance, the right femoral vein was accessed. Two Perclose ProGlide sutures were placed in preclose fashion and an 8F sheath placed. Heparin was administered to achieve ACT>300.
Via the 8F sheath, a J-wire was placed in the SVC. The 8F sheath was exchanged for an 8.5F [place] VersaCross Sheath and the J-wire exchanged for a [place] VersaCross RF wire. Under BRI guidance, the sheath was navigated to an appropriate posterior
superior portion of the septum. In a 4-chamber view, height above the mitral valve annulus was measured at 4 cm. Under RF application, the RF wire crossed into the LA and position was verified in the left upper pulmonary vein on BRI. The sheath was
advanced through the septum to dilate the septum. The sheath was then removed, and serial dilation of the venous access site performed followed by placement of the MitraClip sheath which was advanced to the septum and crossed into the left atrium
followed by removal of the wire and dilator. Left atrial pressure was measured at 19 mmHg with V waves to 32 mmHg.
Initial clip strategy was to place an NTW clip at the site of most severe mitral regurgitation and if significant residual medial regurgitation was present, to consider transitioning to a 2 clip strategy, potentially after shifting the first clip
laterally. A MitraClip NTW clip delivery system was prepared on the back table and advanced to the tip of the sheath. Under BRI guidance, the clip was advanced out of the sheath to straddle position and carefully maneuvered until it was centralized
above the valve plane. The clip was opened and grippers checked. Clip position, orientation, and trajectory were iteratively adjusted under 2D and 3D BRI guidance. In a grasping view, the clip was crossed into the LV. Position and orientation were
again verified with 2D and 3D BRI. The clip was carefully pulled back until anterior and posterior leaflet capture was observed and the grippers were then dropped with tissue capture observed. The clip was then closed to 60 degrees, capture was
verified, and the clip was then fully closed. Mitral regurgitation was assessed as overall moderate with residual MR both medial and lateral to the clip, with the medial component coming from the A2-A3 cleft. This degree of MR in the cleft was not
present at baseline, suggesting that the clip was creating tension in such a way that the cleft was being pulled open. We decided to release the clip, and attempt a more lateral placement, in the hope that this would both reduce the residual lateral
MR, but also put less tension on the tissue medial to the clip and reduce the amount to MR in the cleft. The clip was unlocked, grippers raised, and everted and returned to the atrium. The same steps as above were repeated, with the clip passed into
the ventricle and then pulled back until anterior and posterior leaflet capture was observed. The grippers were then dropped with tissue capture observed. The clip was then closed to 60 degrees, capture was verified, and the clip was then fully
closed and locked. There was observed to be improvement in both the lateral and medical components of MR, with significantly less MR originating from the A2-A3 cleft. Overall, the mitral regurgitation severity was assessed as mild-moderate. We
considered further shifting the clip laterally and/or swapping for a XTW clip, however, it was not felt that either of these maneuvers would dramatically improve the MR. Mitral gradient was 1.5 mmHg. Based on this, we decided to release the clip.
Clip release was performed in the usual fashion and the clip was verified to be stable on BRI and fluoroscopy after release. There was no significant change in MR or mitral gradients post release. The CDS was removed with the guide aspirated. Left
atrial pressure was improved to 15 mmHg with v-waves to 23 mmHg. The sheath was removed from the LA and there was observed to be an expected ASD without significant R-L flow. There was no effusion. The sheath was removed from the venotomy and the
venotomy closed with deployment of the PerClose sutures with excellent hemostasis verified. This concluded the procedure. The patient was extubated by anesthesia and taken to the cath recovery unit in stable condition.
RADIATION: dose 219 mGy; DAP 26.9 Gy*cm2; fluoroscopy time 64.6 min
CONCLUSIONS: mitral transcatheter edge to edge repair with MitraClip G4 system and NTW clip implantation
RECOMMENDATIONS:
1. anticoagulation with home Eliquis 2.5 BID, can resume tonight
2. repeat TTE in AM and at 1 month
Copy to: Dr. Remi Hancock MD (certified art therapist); Dr. Bello Valentin MD (PCP)
Signed: Russell Payne MD, PhD
[2025-05-03] MEDS: ELIQUIS 2.5 MG PO (20:04)
[2025-05-03] MEDS: TOPROL XL 50 MG PO (20:04)
[2025-05-04 02:03] VITALS: BP 161/71
[2025-05-04] MEDS: TYLENOL #3 2 TABLET PO (02:21)
--- NOTE | 2025-05-04 02:27 | DOWNTIME ---
There was a [employer] Client Judge Downtime on 05/04/2025 from 0100 to 05/04/2025 at 0215. Downtime documentation of patient's care, including medication administrations, has been reconciled in the electronic record per guidelines. Refer to the
patient's paper chart under the miscellaneous tab to see printed paper medication records and downtime forms.
[2025-05-04 02:56] LABS: Hematocrit 34.9 % (37.0-47.0); Hemoglobin 11.6 g/dL (12.0-16.0); Mean Corp Hgb Conc. 33.2 g/dL (33.0-37.0); Mean Corpuscular Volume 91.6 fL (81.0-99.0); Platelet Count 217 10^3/uL (130-400); Red Cell Dist. Width 13.7 % (11.5-14.5)
--- NOTE | 2025-05-04 03:03 | PTCARENOTE ---
At approximately 02:00 pt rang call mckeon; and reports after returning back from the bathroom she developed 'chest discomfort'. Denies any dizziness w/ ambulation. Described the pain a 6/10 on her left anterior chest and it radiates to her left
scapula. Pt described discomfort as 'mild squeezing'. Morning ekg obtained w/ a result of (Sinus Bradycardia w/ 1st AV block, Left ventricular hypertrophy w/ repolarization, and prolonged qt). Labs obtained and sent. BP 161/71, afebrile. Pulse ox
98% RA. Ed. Yoanna CT PA made aware. Patient had requested to take her PRN Tylenol #3, medication administered at 02:21.
Right radial site ecchymotic and soft upon palpation w/ positive pulse. Right groin dressing w/ small drainage, site marked. No hematoma present at this time. B/l DP pulses palpable. Pt aware of POC. Call mckeon in reach.
[2025-05-04 03:22] LABS: Blood Urea Nitrogen 32 mg/dl (7-17); Calcium 9.2 mg/dl (8.4-10.2); Carbon Dioxide 31 mmol/L (22-30); Chloride 100 mmol/L (98-107); Estimated Creatinine Clearance 28 ml/min; Glucose 123 mg/dl (70-99); Magnesium 1.9 mg/dl (1.6-2.3); Potassium 3.7 mmol/L (3.5-5.1); Sodium 138 mmol/L (135-145); eGFR 54.87
[2025-05-04 04:06] VITALS: BP 131/61
[2025-05-04 04:10] VITALS: BMI 19.1
[2025-05-04] MEDS: SYNTHROID 50 MCG PO (04:17)
[2025-05-04 07:49] VITALS: BP 135/84
--- NOTE | 2025-05-04 07:51 | W.PN.CARDCBS ---
Addendum entered and electronically signed by Remi Hancock MD 05/04/25 11:43:
I saw and evaluated the patient, and I provided the substantive portion of the medical decision making.
I reviewed and agree with the note by Sarita Fierro and it accurately reflects our care.
I personally performed the medical decision making of the this encounter and my assessment and plan is below:
She is feeling well postprocedure. She believes her shortness of breath is already improving. On exam, she has a regular rate and rhythm with a normal S1-S2 no murmur rubs or gallops were appreciated lungs were clear to auscultation. No evidence
of JVP. Right radial artery site of arterial line shows it is a large ecchymosis but soft, good pulsation and normal cap refill, right femoral artery site is soft, no ecchymosis and well-healed.
Initial hemoglobin with slight drop but this is stable on repeat.
Severe mitral regurgitation status post MitraClip:
Post procedure sites well-healed, will update echo prior to discharge.
Labile hypertension: Stable continue current medications.
Atrial fibrillation: Remains in sinus rhythm on amiodarone and Eliquis which has been resumed. Continue current meds.
Will arrange follow-up.
Addendum entered and electronically signed by MADDIE Currie 05/04/25 11:33:
Repeat CBC with stable improved Hgb.
Preliminary followup echo with mild-mod MR, MG3, no effusion.
Stable for d/c and followup as scheduled.
Original Note:
Today's Communication / Plan
-
Followup Echo today
recheck H/H
30 day outpt echo scheduled
home today
Impression / Plan
-
PCP: Bello Valentin MD
CDY: Jaleesa Hancock MD
84 y/o, presents with severe secondary MR, chronic diastolic HFpEF 60%, NHYA class III symptoms despite max katelyn GDMT. Hospitalization 12/2024 with acute on chronic HF with AFib w/RVR. Treated with IV diuresis. BRI at the time with mod-severe MR, EF
60%, s/p cardioversion. Prior [facility] (08/2022) also with non obstructive CAD in [place].
Now s/p M-CHUCHO 05/03/25.
IMPRESSION/PLAN:
Severe MR/Chronic diastolic HFpEF
s/p M-CHUCHO
groin site stable
right radial richard site and forearm with marked ecchymosis
Hgb drop noted- 11.6 (was 13.5)- will repeat now
eliquis was resumed last evening
continue furosemide, metoprolol
K+ 3.7, replaced
Followup echo today and in 30 days post procedure
Followup at [facility] in 2 weeks as scheduled
AFib- currently in NSR on tele
[id number]=2
maintained on eliquis 2.5mg BID, amiodarone 100mg/d
NSVT/AT on holter- stable on amiodarone, metoprolol
CVA (2006)- stable
HTN- controlled on medical therapy, monitor
Progress Note - [employer]
Subjective
Date of Service: May 04, 2025
Denies cp/palps/dyspnea
oob ambulating
groin site without pain
right forearm with ecchymosis and mildly tender
Objective
Labs:
05/04/25 02:36
05/04/25 02:36
Labs
Hgb 11.6 g/dL (12.0-16.0) L 05/04/25 02:36
Hct 34.9 % (37.0-47.0) L 05/04/25 02:36
Plt Count 217 10^3/uL (130-400) 05/04/25 02:36
PT 14.4 Sec (11.4-14.6) 04/26/25 12:20
INR 1.09 04/26/25 12:20
Sodium 138 mmol/L (135-145) 05/04/25 02:36
Potassium 3.7 mmol/L (3.5-5.1) 05/04/25 02:36
BUN 32 mg/dl (7-17) H 05/04/25 02:36
Creatinine 1.0 mg/dL (0.6-1.0) 05/04/25 02:36
Glucose 123 mg/dl (70-99) H 05/04/25 02:36
Vital Signs and I&O:
Vital Signs
Temp Pulse Resp BP Pulse Ox
97.5 F 63 20 131/61 96
05/04/25 07:50 05/04/25 07:00 05/04/25 07:50 05/04/25 04:06 05/04/25 07:50
Vital Signs
Temp Pulse Resp BP Pulse Ox
97.5 F 63 20 131/61 96
05/04/25 07:50 05/04/25 07:00 05/04/25 07:50 05/04/25 04:06 05/04/25 07:50
Intake & Output
05/02/25 05/03/25 05/04/25 05/05/25
06:59 06:59 06:59 06:59
Intake Total 1440 / 1440
Output Total 1300 / 1300
Balance 140 / 140
Physical Exam
Physical Exam
AAOx3, MAEE 5/5
RRR S1 S2 no murmurs
CTA bilat, non labored
soft abd, + bs
right groin site without ht/bleeding, non tender
right radial richard site/forearm with marked ecchymosis, mildly tender, no swelling or HT, palpable radial and ulnar pulses.
bilat extremities w/palpable distal pulses, no edema
--- NOTE | 2025-05-04 08:11 | W.PN.ANS.POP ---
Anesthesia Post Operative
- Anesthesia Post Op Note
Vital Signs Stable-See Nursing Note: Yes
Airway Patent: Yes
Adequate Pain Control: Yes
Change in Mental Status: No
Current Postoperative Nausea & Vomiting: No
Anesthesia Complications: No
General Anesthetic Recall: No
Unplanned Admission: No
Post Op Hydration Adequate: Yes
- -
Pt doing well, no N/V, resting comfortably. Pt with left wrist area bruise. Area is soft, 'less tender' than it had been. Dressing dry and intact. No other anesthesia c/o at time of post op visit.
--- NOTE | 2025-05-04 09:50 | CM ---
Reviewed chart. Met with and Mrs. King to review discharge plans. She state she is feeling well and maybe able to go home soon. She states prior to admission she resides with her spouse with two steps to enter. She states prior to admission
she was independent with ambulation and adls. She states she has a walker at home to use if needed. She states she has a prescription plan and uses [facility]. We reviewed a home visit by the Transitional Care Nurse. She is agreeable to a home
visit. Medical work-up in progress. The discharge plan is to return home with her spouse and a home visit by the Transitional Care Nurse when medically stable.
--- NOTE | 2025-05-04 10:00 | ITS.CL.PN ---
Snow Remover - Procedure Note
Procedure
Procedure Note:
TRANSCATHETER EDGE - TO - EDGE MITRAL VALVE REPAIR (CHUCHO)/MITRACLIP REPORT
Date: May 03, 2025
Referring: Lolly Hancock
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
Procedure(s): Transcatheter mitral valve edge to edge repair/MitraClip using one NTW.
Preprocedure MR severity: 3+
Postprocedure MR severity: 1.5+
Interventional Cardiology Operators: Drs. Xiomara Lind (trans-septal puncture) and Russell Payne (Clip delivery).
ACCESS:
1. Right common femoral vein, 24 German sheath, under ultrasound guidance using a micropuncture kit.
Ultrasound was utilized for vascular access. The right femoral vein were visualized under ultrasound, and the vessels was patent. An image was stored permanently in the patient's medical record. Under direct ultrasound guidance, an 8 German
sheaths was first inserted into the right common femoral vein using a micropuncture kit through a modified Seldinger technique.
BRI Biology Faculty Member(s): Lolly Hancock
Anesthesia: GETA provided by the anesthesia staff.
Estimated Blood Loss: Minimal.
Complications: None.
Condition: Stable.
PROCEDURAL DETAILS:
The patient was brought to the cardiac catheterization lab and anesthetized by the anesthesiology staff. A transesophageal probe was placed and preliminary echocardiography was performed. The patient was prepped and draped in standard sterile
fashion. The right common femoral vein was accessed using a modified Seldinger technique with a micropuncture kit under ultrasound guidance. The vein was dilated with an 8 German dilator then preclosed with a Perclose percutaneous suture. And 8
German sheath was placed in the femoral vein. Heparin was given to maintain a therapeutic ACT throughout the case between 300 to 350 ms.
The [employer]Cross system was prepped on the back table. The J-wire for the versa cross was advanced into the superior vena cava and the 8 German sheath was removed. The transseptal sheath was advanced over the wire and into the superior vena
cava. The J-wire was removed and the versa cross wire was advanced to the distal tip of the sheath, but remained within the dilator. This sheath was positioned in the interatrial septum with confirmed position on BRI. Transseptal puncture was
performed by Dr. Sanford Sherman and the sheath was advanced into the left atrium. Additional heparin was given to achieve a therapeutic ACT. ACT was confirmed above 250 seconds. Oxygen saturation confirmed presence in the left atrium.
The MitraClip steerable sheath was prepped on the back table. The [place] sheath was withdrawn keeping the versa cross wire in the left atrium. The femoral vein was serially dilated and the steerable sheath was advanced through the vein, easily
crossing into the left atrium. Once we had satisfactory purchase of the sheath inside the left atrium the dilator and versa cross wire were removed and the steerable sheath was completely de-aired and flushed.
A(n) NTW MitraClip Delivery System was prepped on the back table. The clip was advanced through the steerable sheath and into the left atrium. The clip was oriented and advanced subvalvular to the mitral valve. Once we were satisfied with with
position, the grippers were lowered and the clip arms were tightened to 60 degrees. This demonstrated good position and clip stability. The clip was fully closed demonstrating mild to moderate residual mitral regurgitation. Transvalvular gradient 1
mmHg. We were satisfied with these preliminary results and the clip was deployed. The delivery system was removed from the steerable sheath.
The mitral valve was reevaluated. Mitral valve regurgitation was now graded at mild to moderate. Mitral valve regurgitation continue to remain stable at mild with good systemic blood pressure, good tissue bridge on 3D imaging and stable mitral valve
gradient at 2 mmHg. No pericardial effusion was noted. Invasive hemodynamics revealed significant reduction in V waves down to 23 mmHg from 34 mmHg pre-MitraClip. Post MitraClip placement, there is normal flow noted in the pulmonary veins.
There was a residual small lateral jet close to the commissure which we did not feel like was suitable for further improvement. One of the 2 small medial jets was originating at an area of cleft with paucity of posterior leaflet to allow for a
second smaller clip. At this point, we were satisfied with our results. The steerable sheath was withdrawn into the right atrium, then negative tension was applied to straighten the catheter. The steerable sheath was withdrawn and the Perclose
percutaneous suture was tightened with good hemostasis.
The patient tolerated the procedure well, was brought out of anesthesia and transferred to the CVICU in stable condition.
IMPLANT(S)/POSITION:
1. NTW on lateral side of A2 P2
VALVE HEMODYNAMICS:
Preoperative
MR severity (0-4): 3+
Transmitral gradient (mmHg): 1
Postoperative
MR severity (0-4): 1.5+
Transmitral gradient (mmHg): 1
CONCLUSIONS:
1. 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
RECOMMENDATIONS:
1. Routine post procedure care.
2. Transthoracic echocardiogram ordered for tomorrow morning.
3. Resume home Eliquis at 2.5 mg twice daily
Xiomara Lind MD, FACC, [facility]
Copy to: Lolly Hancock
[2025-05-04] MEDS: ELIQUIS 2.5 MG PO (10:02)
[2025-05-04] MEDS: TOPROL XL 50 MG PO (10:02)
[2025-05-04] MEDS: PACERONE 100 MG PO (10:02)
[2025-05-04] MEDS: KCL 20 MEQ PO (10:03)
[2025-05-04] MEDS: ASPIR LOW (ENTERIC COATED) 81 MG PO (10:03)
[2025-05-04] MEDS: LASIX 40 MG PO (10:03)
[2025-05-04 10:37] LABS: Hematocrit 36.2 % (37.0-47.0); Hemoglobin 12.0 g/dL (12.0-16.0); Mean Corp Hgb Conc. 33.1 g/dL (33.0-37.0); Mean Corpuscular Volume 93.5 fL (81.0-99.0); Platelet Count 244 10^3/uL (130-400); Red Cell Dist. Width 13.7 % (11.5-14.5)
--- NOTE | 2025-05-04 11:34 | W.DS.TRANS ---
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
-
Discharge Instructions:
Discharge Diagnosis/Procedures S/P M-CHUCHO (MitraClip)
Diet Low Cholesterol,2 Gram Sodium
Driving Restrictions No driving for 24 hours
Others Tests 30 Day Follow Up Echocardiogram: 06/01/2025 at
1pm at [facility]
Other Services Cardiac Rehab
Wound Care Please do not apply lotions, creams or powders
to groin areas.
Specialty Instructions Weigh Daily
Instructions:
Stand-Alone Forms: DC Instructions- Cath/EP Lab
Changes to Home Medications: Yes
Discharge Medications:
DC Medications w/original date entered in [employer]
levothyroxine 50 mcg tablet 50 mcg PO DAILY Thyroid 10/05/14
acetaminophen 300 mg-codeine 60 mg tablet 1 tab PO QIDPRN PRN severe pain 12/17/24
apixaban 2.5 mg tablet (Eliquis) 2.5 mg PO BID Blood Clot Prevention/Tx 12/17/24
polyethylene glycol 3350 17 gram oral powder packet (Miralax) 17 g PO DAILYPRN PRN constipation 12/17/24
amiodarone 200 mg tablet 100 mg PO DAILY Heart Disease/Condition 05/03/25
furosemide 40 mg tablet 40 mg PO BID Fluid Retention/Swelling 05/03/25
metoprolol succinate 50 mg tablet,extended release 24 hr 50 mg PO BID Blood Pressure 05/03/25
potassium chloride 20 mEq tablet,extended release(part/cryst) (Klor-Con M) 20 meq PO DAILY #30 tabs 05/04/25
Home Medication Changes
STOP: aspirin
Pending Results: No
[2025-05-04 11:36] VITALS: BP 152/75
== END 2025-05-04 12:53 | disposition home or self-care (01) | DRG 267 ==
LOC: IVU 04:56
PROVIDERS: Nurse Practitioner; Nurse Practitioner Adult Health; ADMITTING PHYSICIAN Student in an Organized Health Care Education/Training Program; FAMILY PHYSICIAN Family Medicine; REFERRING PHYSICIAN Internal Medicine Cardiovascular Disease
PROC: B246ZZ4 Ultrasonography of Right and Left Heart, Transesophageal (ICD-10-PCS; 2025-05-03)
PROC: 02UG3JZ Supplement Mitral Valve with Synthetic Substitute, Percutaneous Approach (ICD-10-PCS; 2025-05-03)
DX: I34.0 Nonrheumatic mitral (valve) insufficiency (principal); Z00.6 Encounter for examination for normal comparison and control in clinical research program; C85.90 Non-Hodgkin lymphoma, unspecified, unspecified site; I50.32 Chronic diastolic (congestive) heart failure; M33.20 Polymyositis, organ involvement unspecified; I42.9 Cardiomyopathy, unspecified; R71.0 Precipitous drop in hematocrit; I47.20 Ventricular tachycardia, unspecified; I47.19 Other supraventricular tachycardia; I11.0 Hypertensive heart disease with heart failure; M35.00 Sjogren syndrome, unspecified; D86.9 Sarcoidosis, unspecified; I48.91 Unspecified atrial fibrillation; I34.81 Nonrheumatic mitral (valve) annulus calcification; E03.9 Hypothyroidism, unspecified; I25.10 Atherosclerotic heart disease of native coronary artery without angina pectoris; I27.20 Pulmonary hypertension, unspecified; J30.2 Other seasonal allergic rhinitis; Z90.49 Acquired absence of other specified parts of digestive tract; Z90.710 Acquired absence of both cervix and uterus; Z88.0 Allergy status to penicillin; Z88.2 Allergy status to sulfonamides; Z92.21 Personal history of antineoplastic chemotherapy; Z88.8 Allergy status to other drugs, medicaments and biological substances; Z86.73 Personal history of transient ischemic attack (TIA), and cerebral infarction without residual deficits; Z79.01 Long term (current) use of anticoagulants; Z79.890 Hormone replacement therapy
CPT/HCPCS: 33418; 36415; 71046; 80048; 80053; 81003; 81015; 82248; 83036; 83735; 83880; 85025; 85027; 85347; 85610; 86850; 86900; 86901; 87070; 93005; 93308; 93312; 93320; 93321; 93325; C1760; C1769; C1894

== ENCOUNTER → 2025-06-02 09:51 | Outpatient (REF) | payer MEDICARE, OTHER, SELFPAY | LOC: RCS 09:51 | PROVIDERS: ATTENDING PHYSICIAN Internal Medicine Cardiovascular Disease; FAMILY PHYSICIAN Family Medicine | DX: I34.0 Nonrheumatic mitral (valve) insufficiency (principal); I10 Essential (primary) hypertension; I27.20 Pulmonary hypertension, unspecified; R00.2 Palpitations; I63.89 Other cerebral infarction; R06.00 Dyspnea, unspecified; R07.89 Other chest pain | CPT/HCPCS: 93306 ==